=== PATIENT | male | born 1955 | race African-American/Black ===

== ENCOUNTER 2019-12-29 03:17 | Emergency (ER) | payer OTHER ==
[2019-12-29 03:26] VITALS: TEMP 98.5; BMI 26.5
[2019-12-29] MEDS ORDERED: LIDOCAINE HCL 1%, 10 MG/ML (20ML VIAL) ONE (04:43)
[2019-12-29 04:45] LABS: HEMOGLOBIN 11.3 GM/dL (11.7-16.9); MCH 30.1 pg (25.7-33.7); MCHC 33.2 g/dl (32.0-35.9); MEAN CELL VOLUME 90.8 fl (80-96); PLATELET COUNT 192 K/MM3 (134-434); RBC 3.74 M/mm3 (4.00-5.60); RDW 14.4 % (11.9-15.9); WHITE BLOOD COUNT 9.1 K/mm3 (4.0-10.0)
[2019-12-29 05:14] LABS: INR 1.1 (0.83-1.09)
[2019-12-29 06:07] LABS: ALBUMIN 3.3 g/dl (3.4-5.0); ALK PHOS 100 U/L (45-117); ANION GAP 8 MMOL/L (8-16); BILIRUBIN,TOTAL 0.3 mg/dL (0.2-1); BLOOD UREA NITROGEN 28.1 mg/dL (7-18); CHLORIDE 108 mmol/L (98-107); CO2 25 mmol/L (21-32); CREATININE 1.8 mg/dL (0.55-1.3); GLUCOSE,RANDOM 89 mg/dL (74-106); POTASSIUM 4.6 mmol/L (3.5-5.1); SGOT/AST 17 U/L (15-37); SGPT/ALT 21 U/L (13-61); SODIUM 141 mmol/L (136-145)
[2019-12-29 06:22] VITALS: BP 197/107; PULSE 76
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
--- NOTE | 2019-12-29 11:52 | EKG ---
Test Reason : Blood Pressure : / mmHG Vent. Rate : 072 BPM Atrial Rate : 072 BPM P-R Int : 152 ms QRS Dur : 084 ms QT Int : 408 ms P-R-T Axes : 088 048 054 degrees QTc Int : 446 ms NORMAL SINUS RHYTHM VOLTAGE CRITERIA FOR LEFT VENTRICULAR HYPERTROPHY NONSPECIFIC T WAVE ABNORMALITY ABNORMAL ECG NO PREVIOUS ECGS AVAILABLE Confirmed by AMY DOHERTY MD ([id number]) on 12/29/2019 11:51:57 AM Referred By: Confirmed By:AMY DOHERTY MD
== END 2019-12-29 06:22 | disposition short-term general hospital (02) ==
LOC: JER 03:17
PROC: 0JQ10ZZ Repair Face Subcutaneous Tissue and Fascia, Open Approach (ICD-10-PCS; principal; 2019-12-29)
DX: S06.360A Traumatic hemorrhage of cerebrum, unspecified, without loss of consciousness, initial encounter (principal); S01.112A Laceration without foreign body of left eyelid and periocular area, initial encounter; X58.XXXA Exposure to other specified factors, initial encounter; Y93.89 Activity, other specified; Y92.89 Other specified places as the place of occurrence of the external cause; Y99.8 Other external cause status
CPT/HCPCS: 36415; 70450-TC; 70486-TC; 71045-TC-FY; 72125-TC; 80053; 80307; 82550; 83880; 84484; 85027; 85610; 85730; 93005; 93010; 99291

== ENCOUNTER 2020-10-20 11:12 | Inpatient (IN) | payer OTHER ==
[2020-10-20 13:04] LABS: BASO % 0.5 % (0-2.0); EOS % 2.3 % (0-4.5); HEMATOCRIT 40.1 % (35.4-49); HEMOGLOBIN 13.3 GM/dL (11.7-16.9); LYMPH % 30.3 % (8-40); MCH 27.7 pg (25.7-33.7); MCHC 33.3 g/dl (32.0-35.9); MEAN CELL VOLUME 83.2 fl (80-96); MEAN PLT VOLUME 11.1 fl (7.5-11.1); MONO % 19.1 % (3.8-10.2); NEUT % 47.8 % (42.8-82.8); PLATELET COUNT 143 K/MM3 (134-434); RBC 4.82 M/mm3 (4.00-5.60); RDW 14.8 % (11.9-15.9); WHITE BLOOD COUNT 3.4 K/mm3 (4.0-10.0)
[2020-10-20 13:07] LABS: URINE APPEARANCE CLEAR; URINE BILIRUBIN NEGATIVE (NEGATIVE); URINE COLOR YELLOW; URINE GLUCOSE (UA) NEGATIVE (NEGATIVE); URINE KETONE NEGATIVE (NEGATIVE); URINE LEUK ESTERASE NEGATIVE (NEGATIVE); URINE NITRITE NEGATIVE (NEGATIVE); URINE PROTEIN TRACE (NEGATIVE); URINE UROBILINOGEN 0.2 mg/dL (0.2-1.0)
[2020-10-20 13:11] LABS: INR 1.1 (0.83-1.09); PROTHROMBIN TIME (PATIENT) 13.5 SEC (9.7-13.0)
[2020-10-20] MEDS ORDERED: DEXAMETHASONE SOD PHOSPHATE 4 MG/1 ML VIAL IVPUSH ONE (13:11)
[2020-10-20 13:13] LABS: ACTIVATED PTT 31.2 SECONDS (25.2-36.5)
[2020-10-20] MEDS ORDERED: DEXAMETHASONE SOD PHOSPHATE 4 MG/1 ML VIAL ONE (13:14)
[2020-10-20 13:20] LABS: CHLORIDE 107 mmol/L (98-107); POTASSIUM 5.1 mmol/L (3.5-5.1); SODIUM 139 mmol/L (136-145)
[2020-10-20 13:22] LABS: ALBUMIN 3.7 g/dl (3.4-5.0); CALCIUM 9.3 mg/dL (8.5-10.1)
[2020-10-20 13:23] LABS: ANION GAP 6 MMOL/L (8-16); BLOOD UREA NITROGEN 28.7 mg/dL (7-18); CO2 25 mmol/L (21-32); GLUCOSE,RANDOM 91 mg/dL (74-106)
[2020-10-20 13:25] LABS: BILIRUBIN,DIRECT 0.1 mg/dL (0.0-0.2)
[2020-10-20 13:26] LABS: CREATININE 1.2 mg/dL (0.55-1.3); SGOT/AST 16 U/L (15-37); SGPT/ALT 21 U/L (13-61)
[2020-10-20 13:27] LABS: BILIRUBIN,TOTAL 0.3 mg/dL (0.2-1); LDH 144 U/L (87-246); TOT PROT 8.2 g/dl (6.4-8.2)
[2020-10-20 13:28] LABS: ALK PHOS 112 U/L (45-117)
[2020-10-20] MEDS ORDERED: oxyCODONE HCL 5 MG TABLET PO PRN (19:02)
[2020-10-20] MEDS ORDERED: ALBUTEROL SO4 HFA INHALER IH PRN (19:02)
[2020-10-20] MEDS ORDERED: GABAPENTIN 100 MG CAPSULE ONE (21:56)
[2020-10-20] MEDS ORDERED: DOCUSATE SODIUM 100 MG CAPSULE (FP) PO ONE (21:56)
[2020-10-20] MEDS ORDERED: HEPARIN NA (PORCINE) 5,000 UNITS/ML 1ML VIAL SQ SCH (22:00)
[2020-10-20] MEDS: DOCUSATE SODIUM 100 MG CAPSULE (FP) PO SCH (22:07)
[2020-10-20] MEDS: GABAPENTIN 300 MG CAPSULE PO SCH (22:07)
[2020-10-20] MEDS: traZODone HCL 50 MG TABLET (FP) PO SCH (22:33)
[2020-10-20] MEDS: hydrALAZINE HCL 10 MG TABLET PO SCH (22:33)
[2020-10-21 05:21] VITALS: BMI 19.7
[2020-10-21] MEDS: GABAPENTIN 300 MG CAPSULE PO SCH ×3 (06:24→22:30)
[2020-10-21] MEDS: amLODIPine BESYLATE 10 MG TABLET (FP) PO SCH (09:46)
[2020-10-21] MEDS: LOSARTAN POTASSIUM 50 MG TABLET PO SCH (09:46)
[2020-10-21] MEDS: ASPIRIN COATED 81 MG TABLET.EC PO SCH (09:46)
[2020-10-21] MEDS: hydrALAZINE HCL 10 MG TABLET PO SCH ×2 (09:46→22:29)
[2020-10-21] MEDS ORDERED: ACETAMINOPHEN 325 MG TABLET (FP) PO PRN (11:15)
[2020-10-21] MEDS ORDERED: oxyCODONE HCL 5 MG TABLET PO PRN (11:15)
[2020-10-21] MEDS: oxyCODONE HCL 5 MG TABLET PO PRN ×2 (11:26→18:24)
[2020-10-21] MEDS: DULoxetine HCL 30 MG CAPSULE.DR PO SCH (12:49)
[2020-10-21] MEDS: ACETAMINOPHEN 325 MG TABLET (FP) PO PRN (18:25)
[2020-10-21] MEDS: traZODone HCL 50 MG TABLET (FP) PO SCH (22:29)
[2020-10-21] MEDS: DOCUSATE SODIUM 100 MG CAPSULE (FP) PO SCH (22:29)
[2020-10-22] MEDS: GABAPENTIN 300 MG CAPSULE PO SCH ×3 (05:03→22:07)
[2020-10-22] MEDS: oxyCODONE HCL 5 MG TABLET PO PRN ×3 (09:05→22:41)
[2020-10-22] MEDS ORDERED: ENOXAPARIN NA (PORCINE) 80 MG/0.8 ML DISP.SYRIN SQ SCH (10:00)
[2020-10-22] MEDS ORDERED: ENOXAPARIN NA (PORCINE) 40 MG/0.4 ML DISP.SYRIN SQ SCH (10:00)
[2020-10-22 10:31] LABS: BASO % 0.4 % (0-2.0); EOS % 0.9 % (0-4.5); HEMATOCRIT 42.3 % (35.4-49); HEMOGLOBIN 13.9 GM/dL (11.7-16.9); LYMPH % 31.8 % (8-40); MCH 27.2 pg (25.7-33.7); MCHC 32.8 g/dl (32.0-35.9); MEAN PLT VOLUME 11.3 fl (7.5-11.1); NEUT % 52.9 % (42.8-82.8); PLATELET COUNT 134 K/MM3 (134-434); RBC 5.09 M/mm3 (4.00-5.60); WHITE BLOOD COUNT 3.9 K/mm3 (4.0-10.0)
[2020-10-22 10:54] LABS: CHLORIDE 108 mmol/L (98-107); POTASSIUM 4.2 mmol/L (3.5-5.1); SODIUM 138 mmol/L (136-145)
[2020-10-22 10:56] LABS: ALBUMIN 3.5 g/dl (3.4-5.0); ANION GAP 5 MMOL/L (8-16); CO2 25 mmol/L (21-32); GLUCOSE,RANDOM 141 mg/dL (74-106); MAGNESIUM 2.2 mg/dL (1.8-2.4)
[2020-10-22 10:59] LABS: CREATININE 1.3 mg/dL (0.55-1.3); SGOT/AST 14 U/L (15-37); SGPT/ALT 21 U/L (13-61)
[2020-10-22 11:01] LABS: BILIRUBIN,TOTAL 0.4 mg/dL (0.2-1); TOT PROT 7.5 g/dl (6.4-8.2)
[2020-10-22 11:02] LABS: ALK PHOS 105 U/L (45-117)
[2020-10-22 11:06] LABS: LDH 124 U/L (87-246)
[2020-10-22] MEDS ORDERED: PT OWN MED DRAWER 7, Y5N ONE (11:47)
[2020-10-22] MEDS: ASPIRIN COATED 81 MG TABLET.EC PO SCH (11:51)
[2020-10-22] MEDS: LOSARTAN POTASSIUM 50 MG TABLET PO SCH (11:52)
[2020-10-22] MEDS: DULoxetine HCL 30 MG CAPSULE.DR PO SCH (11:52)
[2020-10-22] MEDS: amLODIPine BESYLATE 10 MG TABLET (FP) PO SCH (11:52)
[2020-10-22] MEDS: hydrALAZINE HCL 10 MG TABLET PO SCH ×2 (11:52→22:07)
[2020-10-22] MEDS: MULTIVITAMINS (DAILY MVI) TABLET (FP) PO SCH (11:52)
[2020-10-22] MEDS: ASCORBIC ACID 500 MG TABLET (FP) PO SCH ×2 (11:52→22:07)
[2020-10-22] MEDS: ZINC SULFATE 220 MG CAPSULE (FP) PO SCH ×2 (11:52→22:07)
[2020-10-22] MEDS: CHOLECALCIFEROL (VIT D3) 1,000 UNIT (25 MCG) TABLET PO SCH (11:53)
[2020-10-22] MEDS: AMINO ACIDS/PROTEIN HYDROLYS 30 ML LIQUID.PKT PO SCH (16:35)
[2020-10-22] MEDS: traZODone HCL 50 MG TABLET (FP) PO SCH (22:07)
[2020-10-22] MEDS: DOCUSATE SODIUM 100 MG CAPSULE (FP) PO SCH (22:07)
[2020-10-22] MEDS: ACETAMINOPHEN 325 MG TABLET (FP) PO PRN (22:42)
[2020-10-23] MEDS: GABAPENTIN 300 MG CAPSULE PO SCH ×3 (05:29→22:53)
[2020-10-23] MEDS: oxyCODONE HCL 5 MG TABLET PO PRN ×3 (05:39→20:12)
[2020-10-23] MEDS: ACETAMINOPHEN 325 MG TABLET (FP) PO PRN ×2 (05:40→20:07)
[2020-10-23 09:00] LABS: BASO % 0.4 % (0-2.0); EOS % 0.8 % (0-4.5); HEMATOCRIT 42.2 % (35.4-49); HEMOGLOBIN 13.9 GM/dL (11.7-16.9); LYMPH % 23.8 % (8-40); MCH 26.9 pg (25.7-33.7); MCHC 32.9 g/dl (32.0-35.9); MEAN CELL VOLUME 81.9 fl (80-96); MEAN PLT VOLUME 11.8 fl (7.5-11.1); MONO % 21.9 % (3.8-10.2); NEUT % 53.1 % (42.8-82.8); PLATELET COUNT 127 K/MM3 (134-434); RBC 5.15 M/mm3 (4.00-5.60); RDW 14.8 % (11.9-15.9); WHITE BLOOD COUNT 4.1 K/mm3 (4.0-10.0)
[2020-10-23 09:17] LABS: POTASSIUM 4.4 mmol/L (3.5-5.1)
[2020-10-23 09:34] LABS: ALBUMIN 3.6 g/dl (3.4-5.0); CALCIUM 9.1 mg/dL (8.5-10.1)
[2020-10-23 09:35] LABS: BLOOD UREA NITROGEN 50.2 mg/dL (7-18); MAGNESIUM 2.1 mg/dL (1.8-2.4)
[2020-10-23 09:38] LABS: BILIRUBIN,TOTAL 0.4 mg/dL (0.2-1); CREATININE 1.3 mg/dL (0.55-1.3); TOT PROT 7.8 g/dl (6.4-8.2)
[2020-10-23] MEDS ORDERED: PT OWN MED DRAWER 7, Y5N ONE (10:31)
[2020-10-23] MEDS: amLODIPine BESYLATE 10 MG TABLET (FP) PO SCH (10:42)
[2020-10-23] MEDS: ASPIRIN COATED 81 MG TABLET.EC PO SCH (10:42)
[2020-10-23] MEDS: CHOLECALCIFEROL (VIT D3) 1,000 UNIT (25 MCG) TABLET PO SCH (10:42)
[2020-10-23] MEDS: ZINC SULFATE 220 MG CAPSULE (FP) PO SCH ×2 (10:42→22:53)
[2020-10-23] MEDS: ASCORBIC ACID 500 MG TABLET (FP) PO SCH ×2 (10:42→22:52)
[2020-10-23] MEDS: LOSARTAN POTASSIUM 50 MG TABLET PO SCH (10:42)
[2020-10-23] MEDS: DULoxetine HCL 30 MG CAPSULE.DR PO SCH (10:42)
[2020-10-23] MEDS: AMINO ACIDS/PROTEIN HYDROLYS 30 ML LIQUID.PKT PO SCH ×2 (10:42→16:45)
[2020-10-23] MEDS: hydrALAZINE HCL 10 MG TABLET PO SCH ×2 (10:43→22:53)
[2020-10-23] MEDS: MULTIVITAMINS (DAILY MVI) TABLET (FP) PO SCH (10:45)
[2020-10-23 11:32] LABS: ANISOCYTOSIS 1+; MACROCYTOSIS 0; OVALOCYTE 1+; PLATELET ESTIMATE DECREASED; TEAR DROP CELLS 1+; TOXIC GRANULATION 1+
[2020-10-23] MEDS ORDERED: PANTOPRAZOLE 40 MG TABLET PO ONE (12:41)
[2020-10-23] MEDS: DOCUSATE SODIUM 100 MG CAPSULE (FP) PO SCH (22:52)
[2020-10-23] MEDS: traZODone HCL 50 MG TABLET (FP) PO SCH (22:53)
[2020-10-24] MEDS: GABAPENTIN 300 MG CAPSULE PO SCH ×3 (05:28→21:21)
[2020-10-24 09:21] LABS: BASO % 0.3 % (0-2.0); EOS % 1.2 % (0-4.5); HEMATOCRIT 41.7 % (35.4-49); LYMPH % 30.5 % (8-40); MCH 27.6 pg (25.7-33.7); MCHC 33.5 g/dl (32.0-35.9); MEAN CELL VOLUME 82.5 fl (80-96); MEAN PLT VOLUME 12.5 fl (7.5-11.1); MONO % 21.2 % (3.8-10.2); NEUT % 46.8 % (42.8-82.8); PLATELET COUNT 125 K/MM3 (134-434); RBC 5.06 M/mm3 (4.00-5.60); RDW 14.9 % (11.9-15.9); WHITE BLOOD COUNT 4.8 K/mm3 (4.0-10.0)
[2020-10-24 09:30] LABS: POTASSIUM 4.6 mmol/L (3.5-5.1)
[2020-10-24] MEDS: AMINO ACIDS/PROTEIN HYDROLYS 30 ML LIQUID.PKT PO SCH ×2 (09:50→16:43)
[2020-10-24] MEDS: oxyCODONE HCL 5 MG TABLET PO PRN ×2 (09:55→21:29)
[2020-10-24 09:56] LABS: ALBUMIN 3.6 g/dl (3.4-5.0); BLOOD UREA NITROGEN 46.2 mg/dL (7-18); CALCIUM 9.2 mg/dL (8.5-10.1); MAGNESIUM 2.3 mg/dL (1.8-2.4)
[2020-10-24] MEDS: ACETAMINOPHEN 325 MG TABLET (FP) PO PRN ×2 (09:56→21:30)
[2020-10-24 09:59] LABS: CREATININE 1.2 mg/dL (0.55-1.3)
[2020-10-24 10:00] LABS: BILIRUBIN,TOTAL 0.5 mg/dL (0.2-1); TOT PROT 7.7 g/dl (6.4-8.2)
[2020-10-24 10:05] LABS: ANISOCYTOSIS 0; MACROCYTOSIS 0; PLATELET ESTIMATE DECREASED
[2020-10-24] MEDS: CHOLECALCIFEROL (VIT D3) 1,000 UNIT (25 MCG) TABLET PO SCH (10:50)
[2020-10-24] MEDS: ZINC SULFATE 220 MG CAPSULE (FP) PO SCH ×2 (10:50→21:21)
[2020-10-24] MEDS: DULoxetine HCL 30 MG CAPSULE.DR PO SCH (10:51)
[2020-10-24] MEDS: LOSARTAN POTASSIUM 50 MG TABLET PO SCH (10:51)
[2020-10-24] MEDS: amLODIPine BESYLATE 10 MG TABLET (FP) PO SCH (10:51)
[2020-10-24] MEDS: hydrALAZINE HCL 10 MG TABLET PO SCH ×2 (10:51→21:21)
[2020-10-24] MEDS: ASPIRIN COATED 81 MG TABLET.EC PO SCH (10:51)
[2020-10-24] MEDS: MULTIVITAMINS (DAILY MVI) TABLET (FP) PO SCH (10:52)
[2020-10-24] MEDS: ASCORBIC ACID 500 MG TABLET (FP) PO SCH ×2 (10:52→21:21)
[2020-10-24] MEDS: DOCUSATE SODIUM 100 MG CAPSULE (FP) PO SCH (21:20)
[2020-10-24] MEDS: traZODone HCL 50 MG TABLET (FP) PO SCH (21:21)
[2020-10-25] MEDS: GABAPENTIN 300 MG CAPSULE PO SCH ×3 (05:27→21:36)
[2020-10-25] MEDS: oxyCODONE HCL 5 MG TABLET PO PRN ×3 (05:28→21:54)
[2020-10-25] MEDS: ACETAMINOPHEN 325 MG TABLET (FP) PO PRN ×3 (05:28→21:53)
[2020-10-25] MEDS: AMINO ACIDS/PROTEIN HYDROLYS 30 ML LIQUID.PKT PO SCH ×2 (08:24→17:05)
[2020-10-25 09:02] LABS: BASO % 0.3 % (0-2.0); EOS % 2.8 % (0-4.5); HEMATOCRIT 43.5 % (35.4-49); HEMOGLOBIN 14.3 GM/dL (11.7-16.9); MCHC 32.9 g/dl (32.0-35.9); MEAN CELL VOLUME 82.1 fl (80-96); MEAN PLT VOLUME 11.7 fl (7.5-11.1); MONO % 17.5 % (3.8-10.2); NEUT % 41.4 % (42.8-82.8); PLATELET COUNT 119 K/MM3 (134-434); RDW 15.3 % (11.9-15.9); WHITE BLOOD COUNT 4.5 K/mm3 (4.0-10.0)
[2020-10-25 09:17] LABS: POTASSIUM 4.9 mmol/L (3.5-5.1)
[2020-10-25 09:24] LABS: ALBUMIN 3.5 g/dl (3.4-5.0); BLOOD UREA NITROGEN 55.5 mg/dL (7-18); CALCIUM 9.2 mg/dL (8.5-10.1); MAGNESIUM 2.7 mg/dL (1.8-2.4)
[2020-10-25 09:27] LABS: CREATININE 1.7 mg/dL (0.55-1.3)
[2020-10-25 09:28] LABS: BILIRUBIN,TOTAL 0.4 mg/dL (0.2-1); TOT PROT 7.5 g/dl (6.4-8.2)
[2020-10-25] MEDS: CHOLECALCIFEROL (VIT D3) 1,000 UNIT (25 MCG) TABLET PO SCH (10:24)
[2020-10-25] MEDS: ASCORBIC ACID 500 MG TABLET (FP) PO SCH ×2 (10:24→21:33)
[2020-10-25] MEDS: ASPIRIN COATED 81 MG TABLET.EC PO SCH (10:25)
[2020-10-25] MEDS: DULoxetine HCL 30 MG CAPSULE.DR PO SCH (10:25)
[2020-10-25] MEDS: hydrALAZINE HCL 10 MG TABLET PO SCH ×2 (10:25→21:33)
[2020-10-25] MEDS: amLODIPine BESYLATE 10 MG TABLET (FP) PO SCH (10:25)
[2020-10-25] MEDS: MULTIVITAMINS (DAILY MVI) TABLET (FP) PO SCH (10:25)
[2020-10-25] MEDS: ZINC SULFATE 220 MG CAPSULE (FP) PO SCH ×2 (10:25→21:32)
[2020-10-25] MEDS: LOSARTAN POTASSIUM 50 MG TABLET PO SCH (10:26)
[2020-10-25] MEDS ORDERED: ENOXAPARIN NA (PORCINE) 40 MG/0.4 ML DISP.SYRIN SQ SCH ×2 (16:30)
[2020-10-25] MEDS ORDERED: DEXAMETHASONE SOD PHOSPHATE 10 MG/1 ML VIAL IVPUSH SCH (19:30)
[2020-10-25] MEDS ORDERED: ENOXAPARIN NA (PORCINE) 80 MG/0.8 ML DISP.SYRIN SQ SCH (19:30)
[2020-10-25] MEDS: DEXAMETHASONE SOD PHOSPHATE 4 MG/1 ML VIAL IVPUSH SCH (20:15)
[2020-10-25] MEDS: APIXABAN 2.5 MG TABLET PO SCH (21:33)
[2020-10-25] MEDS: traZODone HCL 50 MG TABLET (FP) PO SCH (21:33)
[2020-10-25] MEDS: DOCUSATE SODIUM 100 MG CAPSULE (FP) PO SCH (21:36)
[2020-10-26 01:25] LABS: POTASSIUM 5.1 mmol/L (3.5-5.1)
[2020-10-26 01:27] LABS: CALCIUM 8.6 mg/dL (8.5-10.1)
[2020-10-26 01:28] LABS: ALBUMIN 3.5 g/dl (3.4-5.0); BLOOD UREA NITROGEN 57.4 mg/dL (7-18); MAGNESIUM 2.6 mg/dL (1.8-2.4)
[2020-10-26 01:31] LABS: CREATININE 1.4 mg/dL (0.55-1.3)
[2020-10-26 01:32] LABS: BILIRUBIN,TOTAL 0.2 mg/dL (0.2-1)
[2020-10-26 01:34] LABS: TOT PROT 7.5 g/dl (6.4-8.2)
[2020-10-26] MEDS: GABAPENTIN 300 MG CAPSULE PO SCH ×3 (06:12→21:38)
[2020-10-26] MEDS: oxyCODONE HCL 5 MG TABLET PO PRN ×3 (06:17→21:36)
[2020-10-26] MEDS: ACETAMINOPHEN 325 MG TABLET (FP) PO PRN ×2 (06:18→21:37)
[2020-10-26] MEDS: AMINO ACIDS/PROTEIN HYDROLYS 30 ML LIQUID.PKT PO SCH ×2 (08:15→17:28)
[2020-10-26] MEDS: DULoxetine HCL 30 MG CAPSULE.DR PO SCH (11:19)
[2020-10-26] MEDS: hydrALAZINE HCL 10 MG TABLET PO SCH ×2 (11:19→21:39)
[2020-10-26] MEDS: APIXABAN 2.5 MG TABLET PO SCH ×2 (11:19→21:36)
[2020-10-26] MEDS: CHOLECALCIFEROL (VIT D3) 1,000 UNIT (25 MCG) TABLET PO SCH (11:19)
[2020-10-26] MEDS: ASCORBIC ACID 500 MG TABLET (FP) PO SCH ×2 (11:19→21:38)
[2020-10-26] MEDS: amLODIPine BESYLATE 10 MG TABLET (FP) PO SCH (11:19)
[2020-10-26] MEDS: ZINC SULFATE 220 MG CAPSULE (FP) PO SCH ×2 (11:22→21:36)
[2020-10-26] MEDS: MULTIVITAMINS (DAILY MVI) TABLET (FP) PO SCH (11:22)
[2020-10-26] MEDS: DEXAMETHASONE SOD PHOSPHATE 4 MG/1 ML VIAL IVPUSH SCH (11:46)
[2020-10-26] MEDS: SODIUM CHLORIDE 1,000 ML IV SCH (16:07)
[2020-10-26] MEDS: traZODone HCL 50 MG TABLET (FP) PO SCH (21:38)
[2020-10-26] MEDS: DOCUSATE SODIUM 100 MG CAPSULE (FP) PO SCH (21:39)
[2020-10-27] MEDS: oxyCODONE HCL 5 MG TABLET PO PRN ×4 (05:07→23:47)
[2020-10-27] MEDS: SODIUM CHLORIDE 1,000 ML IV SCH ×2 (05:08→17:46)
[2020-10-27] MEDS: ACETAMINOPHEN 325 MG TABLET (FP) PO PRN ×2 (05:09→23:46)
[2020-10-27] MEDS: GABAPENTIN 300 MG CAPSULE PO SCH ×3 (05:09→21:24)
[2020-10-27 08:28] LABS: POTASSIUM 4.3 mmol/L (3.5-5.1)
[2020-10-27 08:33] LABS: BLOOD UREA NITROGEN 32.9 mg/dL (7-18); CALCIUM 8.2 mg/dL (8.5-10.1)
[2020-10-27 08:36] LABS: CREATININE 0.9 mg/dL (0.55-1.3)
[2020-10-27 08:51] LABS: BASO % 0.6 % (0-2.0); HEMATOCRIT 37.1 % (35.4-49); HEMOGLOBIN 12.3 GM/dL (11.7-16.9); LYMPH % 45.7 % (8-40); MCH 27.4 pg (25.7-33.7); MCHC 33.1 g/dl (32.0-35.9); MEAN CELL VOLUME 82.8 fl (80-96); MEAN PLT VOLUME 11.9 fl (7.5-11.1); MONO % 11.2 % (3.8-10.2); NEUT % 40.5 % (42.8-82.8); PLATELET COUNT 107 K/MM3 (134-434); RBC 4.49 M/mm3 (4.00-5.60); RDW 15.2 % (11.9-15.9); WHITE BLOOD COUNT 4.4 K/mm3 (4.0-10.0)
[2020-10-27] MEDS: hydrALAZINE HCL 10 MG TABLET PO SCH ×2 (11:42→21:25)
[2020-10-27] MEDS: APIXABAN 2.5 MG TABLET PO SCH ×2 (11:42→21:25)
[2020-10-27] MEDS: ZINC SULFATE 220 MG CAPSULE (FP) PO SCH ×2 (11:42→21:25)
[2020-10-27] MEDS: amLODIPine BESYLATE 10 MG TABLET (FP) PO SCH (11:42)
[2020-10-27] MEDS: AMINO ACIDS/PROTEIN HYDROLYS 30 ML LIQUID.PKT PO SCH ×2 (11:42→17:47)
[2020-10-27] MEDS: CHOLECALCIFEROL (VIT D3) 1,000 UNIT (25 MCG) TABLET PO SCH (11:43)
[2020-10-27] MEDS: ASCORBIC ACID 500 MG TABLET (FP) PO SCH ×2 (11:43→21:25)
[2020-10-27] MEDS: MULTIVITAMINS (DAILY MVI) TABLET (FP) PO SCH (11:43)
[2020-10-27] MEDS: DULoxetine HCL 30 MG CAPSULE.DR PO SCH (11:44)
[2020-10-27 11:46] LABS: PLATELET ESTIMATE DECREASED
[2020-10-27] MEDS ORDERED: PT OWN MED DRAWER 7, Y5N ONE (11:50)
[2020-10-27] MEDS ORDERED: LACTATED RINGERS SOLUTION 1,000 ML/1,000 ML INFUS.BAG IV SCH (15:00)
[2020-10-27] MEDS: DOCUSATE SODIUM 100 MG CAPSULE (FP) PO SCH (21:24)
[2020-10-27] MEDS: traZODone HCL 50 MG TABLET (FP) PO SCH (21:25)
[2020-10-28] MEDS: oxyCODONE HCL 5 MG TABLET PO PRN ×3 (06:01→18:18)
[2020-10-28] MEDS: ACETAMINOPHEN 325 MG TABLET (FP) PO PRN (06:02)
[2020-10-28] MEDS: GABAPENTIN 300 MG CAPSULE PO SCH ×3 (06:03→21:48)
[2020-10-28] MEDS ORDERED: PT OWN MED DRAWER 7, Y5N ONE (11:00)
[2020-10-28] MEDS: DULoxetine HCL 30 MG CAPSULE.DR PO SCH (11:09)
[2020-10-28] MEDS: ZINC SULFATE 220 MG CAPSULE (FP) PO SCH ×2 (11:10→21:48)
[2020-10-28] MEDS: CHOLECALCIFEROL (VIT D3) 1,000 UNIT (25 MCG) TABLET PO SCH (11:10)
[2020-10-28] MEDS: APIXABAN 2.5 MG TABLET PO SCH ×2 (11:10→21:48)
[2020-10-28] MEDS: amLODIPine BESYLATE 10 MG TABLET (FP) PO SCH (11:10)
[2020-10-28] MEDS: hydrALAZINE HCL 10 MG TABLET PO SCH ×2 (11:10→21:48)
[2020-10-28] MEDS: MULTIVITAMINS (DAILY MVI) TABLET (FP) PO SCH (11:10)
[2020-10-28] MEDS: ASCORBIC ACID 500 MG TABLET (FP) PO SCH ×2 (11:10→21:48)
[2020-10-28] MEDS: AMINO ACIDS/PROTEIN HYDROLYS 30 ML LIQUID.PKT PO SCH ×2 (11:12→17:17)
[2020-10-28 16:22] LABS: BASO % 0.2 % (0-2.0); EOS % 3.5 % (0-4.5); HEMATOCRIT 38.8 % (35.4-49); HEMOGLOBIN 12.9 GM/dL (11.7-16.9); LYMPH % 26.2 % (8-40); MCH 27.2 pg (25.7-33.7); MCHC 33.3 g/dl (32.0-35.9); MEAN CELL VOLUME 81.5 fl (80-96); MEAN PLT VOLUME 11.4 fl (7.5-11.1); MONO % 8.8 % (3.8-10.2); NEUT % 61.3 % (42.8-82.8); PLATELET COUNT 122 K/MM3 (134-434); RBC 4.76 M/mm3 (4.00-5.60); RDW 14.7 % (11.9-15.9); WHITE BLOOD COUNT 6.7 K/mm3 (4.0-10.0)
[2020-10-28 16:35] LABS: POTASSIUM 4.4 mmol/L (3.5-5.1)
[2020-10-28 16:39] LABS: CALCIUM 8.9 mg/dL (8.5-10.1)
[2020-10-28 16:41] LABS: ALBUMIN 3.3 g/dl (3.4-5.0); BLOOD UREA NITROGEN 24.2 mg/dL (7-18); MAGNESIUM 1.8 mg/dL (1.8-2.4)
[2020-10-28 16:43] LABS: CREATININE 1.1 mg/dL (0.55-1.3)
[2020-10-28 16:45] LABS: BILIRUBIN,TOTAL 0.3 mg/dL (0.2-1); TOT PROT 6.9 g/dl (6.4-8.2)
[2020-10-28] MEDS: DOCUSATE SODIUM 100 MG CAPSULE (FP) PO SCH (21:48)
[2020-10-28] MEDS: traZODone HCL 50 MG TABLET (FP) PO SCH (21:48)
[2020-10-29] MEDS: GABAPENTIN 300 MG CAPSULE PO SCH ×3 (06:19→21:00)
[2020-10-29] MEDS: oxyCODONE HCL 5 MG TABLET PO PRN ×3 (06:19→19:14)
[2020-10-29] MEDS ORDERED: PT OWN MED DRAWER 7, Y5N ONE (09:05)
[2020-10-29] MEDS: hydrALAZINE HCL 10 MG TABLET PO SCH ×2 (09:13→21:00)
[2020-10-29] MEDS: CHOLECALCIFEROL (VIT D3) 1,000 UNIT (25 MCG) TABLET PO SCH (09:13)
[2020-10-29] MEDS: MULTIVITAMINS (DAILY MVI) TABLET (FP) PO SCH (09:13)
[2020-10-29] MEDS: ASCORBIC ACID 500 MG TABLET (FP) PO SCH ×2 (09:13→21:00)
[2020-10-29] MEDS: DULoxetine HCL 30 MG CAPSULE.DR PO SCH (09:13)
[2020-10-29] MEDS: amLODIPine BESYLATE 10 MG TABLET (FP) PO SCH (09:13)
[2020-10-29] MEDS: APIXABAN 2.5 MG TABLET PO SCH ×2 (09:13→21:00)
[2020-10-29] MEDS: AMINO ACIDS/PROTEIN HYDROLYS 30 ML LIQUID.PKT PO SCH ×2 (09:13→19:17)
[2020-10-29] MEDS: ZINC SULFATE 220 MG CAPSULE (FP) PO SCH ×2 (09:18→21:00)
[2020-10-29 10:32] LABS: BASO % 0.8 % (0-2.0); EOS % 5.1 % (0-4.5); HEMATOCRIT 39.9 % (35.4-49); HEMOGLOBIN 13.2 GM/dL (11.7-16.9); LYMPH % 30.1 % (8-40); MCH 27.2 pg (25.7-33.7); MEAN CELL VOLUME 82.2 fl (80-96); MEAN PLT VOLUME 11.8 fl (7.5-11.1); MONO % 10.9 % (3.8-10.2); NEUT % 53.1 % (42.8-82.8); PLATELET COUNT 129 K/MM3 (134-434); RBC 4.85 M/mm3 (4.00-5.60); RDW 14.2 % (11.9-15.9)
[2020-10-29 10:49] LABS: POTASSIUM 4.3 mmol/L (3.5-5.1)
[2020-10-29 10:52] LABS: CALCIUM 8.9 mg/dL (8.5-10.1); MAGNESIUM 1.8 mg/dL (1.8-2.4)
[2020-10-29 10:53] LABS: ALBUMIN 3.1 g/dl (3.4-5.0)
[2020-10-29 10:58] LABS: BILIRUBIN,TOTAL 0.5 mg/dL (0.2-1); TOT PROT 6.9 g/dl (6.4-8.2)
[2020-10-29] MEDS: DOCUSATE SODIUM 100 MG CAPSULE (FP) PO SCH (21:00)
[2020-10-29] MEDS: traZODone HCL 50 MG TABLET (FP) PO SCH (21:00)
[2020-10-30] MEDS: oxyCODONE HCL 5 MG TABLET PO PRN ×4 (01:48→22:01)
[2020-10-30] MEDS: GABAPENTIN 300 MG CAPSULE PO SCH ×3 (06:23→22:03)
[2020-10-30 08:31] LABS: BASO % 0.2 % (0-2.0); EOS % 4.5 % (0-4.5); HEMATOCRIT 38.8 % (35.4-49); HEMOGLOBIN 12.9 GM/dL (11.7-16.9); LYMPH % 25.4 % (8-40); MCH 27.2 pg (25.7-33.7); MCHC 33.2 g/dl (32.0-35.9); MEAN PLT VOLUME 11.4 fl (7.5-11.1); MONO % 13.2 % (3.8-10.2); NEUT % 56.7 % (42.8-82.8); PLATELET COUNT 129 K/MM3 (134-434); RBC 4.73 M/mm3 (4.00-5.60); RDW 14.5 % (11.9-15.9); WHITE BLOOD COUNT 7.8 K/mm3 (4.0-10.0)
[2020-10-30] MEDS: AMINO ACIDS/PROTEIN HYDROLYS 30 ML LIQUID.PKT PO SCH ×2 (08:48→16:56)
[2020-10-30 08:52] LABS: POTASSIUM 4.7 mmol/L (3.5-5.1)
[2020-10-30 08:55] LABS: ALBUMIN 3.2 g/dl (3.4-5.0); BLOOD UREA NITROGEN 21.2 mg/dL (7-18); CALCIUM 9.3 mg/dL (8.5-10.1); MAGNESIUM 1.9 mg/dL (1.8-2.4)
[2020-10-30 08:58] LABS: CREATININE 1.1 mg/dL (0.55-1.3)
[2020-10-30 09:01] LABS: BILIRUBIN,TOTAL 0.5 mg/dL (0.2-1); TOT PROT 6.9 g/dl (6.4-8.2)
[2020-10-30] MEDS: DULoxetine HCL 30 MG CAPSULE.DR PO SCH (12:06)
[2020-10-30] MEDS: ZINC SULFATE 220 MG CAPSULE (FP) PO SCH ×2 (12:06→22:02)
[2020-10-30] MEDS: APIXABAN 2.5 MG TABLET PO SCH ×2 (12:07→22:02)
[2020-10-30] MEDS: hydrALAZINE HCL 10 MG TABLET PO SCH ×2 (12:07→22:02)
[2020-10-30] MEDS: CHOLECALCIFEROL (VIT D3) 1,000 UNIT (25 MCG) TABLET PO SCH (12:07)
[2020-10-30] MEDS: MULTIVITAMINS (DAILY MVI) TABLET (FP) PO SCH (12:07)
[2020-10-30] MEDS: ASCORBIC ACID 500 MG TABLET (FP) PO SCH ×2 (12:07→22:02)
[2020-10-30] MEDS: amLODIPine BESYLATE 10 MG TABLET (FP) PO SCH (12:07)
[2020-10-30] MEDS: ACETAMINOPHEN 325 MG TABLET (FP) PO PRN (21:59)
[2020-10-30] MEDS: DOCUSATE SODIUM 100 MG CAPSULE (FP) PO SCH (22:00)
[2020-10-30] MEDS: traZODone HCL 50 MG TABLET (FP) PO SCH (22:02)
[2020-10-31] MEDS: oxyCODONE HCL 5 MG TABLET PO PRN ×3 (05:35→22:01)
[2020-10-31] MEDS: ACETAMINOPHEN 325 MG TABLET (FP) PO PRN ×2 (05:37→22:37)
[2020-10-31] MEDS: GABAPENTIN 300 MG CAPSULE PO SCH (05:37)
[2020-10-31 08:59] LABS: BASO % 0.4 % (0-2.0); EOS % 3.4 % (0-4.5); HEMATOCRIT 38.3 % (35.4-49); HEMOGLOBIN 12.9 GM/dL (11.7-16.9); LYMPH % 25.9 % (8-40); MCH 27.6 pg (25.7-33.7); MCHC 33.7 g/dl (32.0-35.9); MEAN CELL VOLUME 81.9 fl (80-96); MEAN PLT VOLUME 11.3 fl (7.5-11.1); MONO % 12.2 % (3.8-10.2); NEUT % 58.1 % (42.8-82.8); PLATELET COUNT 142 K/MM3 (134-434); RBC 4.68 M/mm3 (4.00-5.60); RDW 14.5 % (11.9-15.9); WHITE BLOOD COUNT 7.3 K/mm3 (4.0-10.0)
[2020-10-31 09:16] LABS: POTASSIUM 4.2 mmol/L (3.5-5.1)
[2020-10-31 09:23] LABS: CALCIUM 8.9 mg/dL (8.5-10.1)
[2020-10-31 09:24] LABS: BLOOD UREA NITROGEN 24.1 mg/dL (7-18); MAGNESIUM 1.7 mg/dL (1.8-2.4)
[2020-10-31 09:26] LABS: BILIRUBIN,TOTAL 0.7 mg/dL (0.2-1)
[2020-10-31 09:27] LABS: CREATININE 0.9 mg/dL (0.55-1.3)
[2020-10-31] MEDS ORDERED: PT OWN MED DRAWER 7, Y5N ONE ×4 (10:41→21:45)
[2020-10-31] MEDS: AMINO ACIDS/PROTEIN HYDROLYS 30 ML LIQUID.PKT PO SCH ×2 (10:55→16:34)
[2020-10-31] MEDS: amLODIPine BESYLATE 10 MG TABLET (FP) PO SCH (10:55)
[2020-10-31] MEDS: CHOLECALCIFEROL (VIT D3) 1,000 UNIT (25 MCG) TABLET PO SCH (10:55)
[2020-10-31] MEDS: ASCORBIC ACID 500 MG TABLET (FP) PO SCH ×2 (10:55→22:00)
[2020-10-31] MEDS: ZINC SULFATE 220 MG CAPSULE (FP) PO SCH ×2 (10:55→21:59)
[2020-10-31] MEDS: MULTIVITAMINS (DAILY MVI) TABLET (FP) PO SCH (10:55)
[2020-10-31] MEDS: DULoxetine HCL 30 MG CAPSULE.DR PO SCH (10:55)
[2020-10-31] MEDS: hydrALAZINE HCL 10 MG TABLET PO SCH ×2 (10:55→22:00)
[2020-10-31] MEDS: APIXABAN 2.5 MG TABLET PO SCH ×2 (10:55→21:59)
[2020-10-31] MEDS: LIDOCAINE 5% TOPICAL PATCH TP SCH (11:05)
[2020-10-31] MEDS: GABAPENTIN 400 MG CAPSULE PO SCH ×2 (14:11→21:59)
[2020-10-31] MEDS: traZODone HCL 50 MG TABLET (FP) PO SCH (21:59)
[2020-10-31] MEDS: LIDOCAINE PATCH REMOVAL MC SCH (22:00)
[2020-10-31] MEDS: DOCUSATE SODIUM 100 MG CAPSULE (FP) PO SCH (22:00)
[2020-11-01] MEDS ORDERED: PT OWN MED DRAWER 7, Y5N ONE ×3 (06:04→21:24)
[2020-11-01] MEDS: GABAPENTIN 400 MG CAPSULE PO SCH ×3 (06:34→23:05)
[2020-11-01] MEDS: oxyCODONE HCL 5 MG TABLET PO PRN ×3 (06:35→20:21)
[2020-11-01 09:37] LABS: BASO % 0.5 % (0-2.0); EOS % 2.2 % (0-4.5); HEMATOCRIT 36.8 % (35.4-49); HEMOGLOBIN 12.3 GM/dL (11.7-16.9); LYMPH % 19.7 % (8-40); MCH 27.4 pg (25.7-33.7); MCHC 33.3 g/dl (32.0-35.9); MEAN CELL VOLUME 82.2 fl (80-96); MEAN PLT VOLUME 11.7 fl (7.5-11.1); MONO % 13.5 % (3.8-10.2); NEUT % 64.1 % (42.8-82.8); PLATELET COUNT 149 K/MM3 (134-434); RBC 4.48 M/mm3 (4.00-5.60); RDW 14.4 % (11.9-15.9); WHITE BLOOD COUNT 9.2 K/mm3 (4.0-10.0)
[2020-11-01 09:51] LABS: POTASSIUM 4.1 mmol/L (3.5-5.1)
[2020-11-01 10:01] LABS: CALCIUM 8.9 mg/dL (8.5-10.1)
[2020-11-01 10:03] LABS: MAGNESIUM 1.8 mg/dL (1.8-2.4)
[2020-11-01 10:07] LABS: CREATININE 0.9 mg/dL (0.55-1.3)
[2020-11-01 10:08] LABS: BILIRUBIN,TOTAL 0.8 mg/dL (0.2-1); TOT PROT 6.8 g/dl (6.4-8.2)
[2020-11-01] MEDS: AMINO ACIDS/PROTEIN HYDROLYS 30 ML LIQUID.PKT PO SCH ×2 (10:12→16:49)
[2020-11-01] MEDS: DULoxetine HCL 30 MG CAPSULE.DR PO SCH (10:15)
[2020-11-01] MEDS: amLODIPine BESYLATE 10 MG TABLET (FP) PO SCH (10:16)
[2020-11-01] MEDS: ASCORBIC ACID 500 MG TABLET (FP) PO SCH ×2 (10:16→21:56)
[2020-11-01] MEDS: LIDOCAINE 5% TOPICAL PATCH TP SCH (10:16)
[2020-11-01] MEDS: CHOLECALCIFEROL (VIT D3) 1,000 UNIT (25 MCG) TABLET PO SCH (10:16)
[2020-11-01] MEDS: APIXABAN 2.5 MG TABLET PO SCH ×2 (10:16→21:56)
[2020-11-01] MEDS: MULTIVITAMINS (DAILY MVI) TABLET (FP) PO SCH (10:16)
[2020-11-01] MEDS: hydrALAZINE HCL 10 MG TABLET PO SCH ×2 (10:16→21:56)
[2020-11-01] MEDS: ZINC SULFATE 220 MG CAPSULE (FP) PO SCH ×2 (10:16→21:55)
[2020-11-01] MEDS: ACETAMINOPHEN 325 MG TABLET (FP) PO PRN (20:22)
[2020-11-01] MEDS: DOCUSATE SODIUM 100 MG CAPSULE (FP) PO SCH (21:55)
[2020-11-01] MEDS: traZODone HCL 50 MG TABLET (FP) PO SCH (21:56)
[2020-11-01] MEDS: LIDOCAINE PATCH REMOVAL MC SCH ×2 (21:58→22:00)
[2020-11-02] MEDS ORDERED: PT OWN MED DRAWER 7, Y5N ONE ×3 (05:55→21:06)
[2020-11-02] MEDS: GABAPENTIN 400 MG CAPSULE PO SCH ×3 (06:26→21:17)
[2020-11-02] MEDS: oxyCODONE HCL 5 MG TABLET PO PRN ×3 (06:34→22:02)
[2020-11-02] MEDS: ACETAMINOPHEN 325 MG TABLET (FP) PO PRN ×3 (06:35→22:01)
[2020-11-02] MEDS: LIDOCAINE 5% TOPICAL PATCH TP SCH (10:24)
[2020-11-02] MEDS: MULTIVITAMINS (DAILY MVI) TABLET (FP) PO SCH (10:25)
[2020-11-02] MEDS: ASCORBIC ACID 500 MG TABLET (FP) PO SCH ×2 (10:25→21:18)
[2020-11-02] MEDS: CHOLECALCIFEROL (VIT D3) 1,000 UNIT (25 MCG) TABLET PO SCH (10:25)
[2020-11-02] MEDS: AMINO ACIDS/PROTEIN HYDROLYS 30 ML LIQUID.PKT PO SCH ×2 (10:25→17:04)
[2020-11-02] MEDS: hydrALAZINE HCL 10 MG TABLET PO SCH ×2 (10:26→21:17)
[2020-11-02] MEDS: ZINC SULFATE 220 MG CAPSULE (FP) PO SCH ×2 (10:26→21:18)
[2020-11-02] MEDS: APIXABAN 2.5 MG TABLET PO SCH ×2 (10:26→21:18)
[2020-11-02] MEDS: amLODIPine BESYLATE 10 MG TABLET (FP) PO SCH (10:26)
[2020-11-02] MEDS: DULoxetine HCL 30 MG CAPSULE.DR PO SCH (10:27)
[2020-11-02] MEDS: DOCUSATE SODIUM 100 MG CAPSULE (FP) PO SCH (21:17)
[2020-11-02] MEDS: traZODone HCL 50 MG TABLET (FP) PO SCH (21:17)
[2020-11-02] MEDS: LIDOCAINE PATCH REMOVAL MC SCH (22:09)
[2020-11-03] MEDS ORDERED: PT OWN MED DRAWER 7, Y5N ONE ×3 (05:10→21:25)
[2020-11-03] MEDS: GABAPENTIN 400 MG CAPSULE PO SCH ×3 (05:34→21:31)
[2020-11-03] MEDS: ACETAMINOPHEN 325 MG TABLET (FP) PO PRN ×2 (05:36→20:45)
[2020-11-03] MEDS: oxyCODONE HCL 5 MG TABLET PO PRN ×3 (05:36→20:46)
[2020-11-03] MEDS: AMINO ACIDS/PROTEIN HYDROLYS 30 ML LIQUID.PKT PO SCH ×2 (08:58→16:40)
[2020-11-03] MEDS: MULTIVITAMINS (DAILY MVI) TABLET (FP) PO SCH (09:48)
[2020-11-03] MEDS: APIXABAN 2.5 MG TABLET PO SCH ×2 (09:48→21:31)
[2020-11-03] MEDS: hydrALAZINE HCL 10 MG TABLET PO SCH ×2 (09:48→21:30)
[2020-11-03] MEDS: DULoxetine HCL 30 MG CAPSULE.DR PO SCH (09:48)
[2020-11-03] MEDS: ZINC SULFATE 220 MG CAPSULE (FP) PO SCH ×2 (09:49→21:29)
[2020-11-03] MEDS: LIDOCAINE 5% TOPICAL PATCH TP SCH (09:49)
[2020-11-03] MEDS: ASCORBIC ACID 500 MG TABLET (FP) PO SCH ×2 (09:49→21:29)
[2020-11-03] MEDS: amLODIPine BESYLATE 10 MG TABLET (FP) PO SCH (09:49)
[2020-11-03] MEDS: CHOLECALCIFEROL (VIT D3) 1,000 UNIT (25 MCG) TABLET PO SCH (09:49)
[2020-11-03 12:24] LABS: BASO % 0.3 % (0-2.0); EOS % 2.7 % (0-4.5); HEMATOCRIT 36.2 % (35.4-49); HEMOGLOBIN 11.9 GM/dL (11.7-16.9); LYMPH % 19.1 % (8-40); MCH 27.1 pg (25.7-33.7); MCHC 32.8 g/dl (32.0-35.9); MEAN CELL VOLUME 82.7 fl (80-96); MEAN PLT VOLUME 11.4 fl (7.5-11.1); MONO % 13.8 % (3.8-10.2); NEUT % 64.1 % (42.8-82.8); PLATELET COUNT 186 K/MM3 (134-434); RBC 4.37 M/mm3 (4.00-5.60); RDW 14.3 % (11.9-15.9); WHITE BLOOD COUNT 8.3 K/mm3 (4.0-10.0)
[2020-11-03 12:33] LABS: POTASSIUM 4.3 mmol/L (3.5-5.1)
[2020-11-03 12:36] LABS: CALCIUM 8.8 mg/dL (8.5-10.1)
[2020-11-03 12:37] LABS: ALBUMIN 2.9 g/dl (3.4-5.0); BLOOD UREA NITROGEN 22.4 mg/dL (7-18)
[2020-11-03 12:42] LABS: BILIRUBIN,TOTAL 0.5 mg/dL (0.2-1); TOT PROT 6.8 g/dl (6.4-8.2)
[2020-11-03] MEDS: DOCUSATE SODIUM 100 MG CAPSULE (FP) PO SCH (21:30)
[2020-11-03] MEDS: traZODone HCL 50 MG TABLET (FP) PO SCH (21:31)
[2020-11-03] MEDS: LIDOCAINE PATCH REMOVAL MC SCH (21:32)
[2020-11-04] MEDS ORDERED: PT OWN MED DRAWER 7, Y5N ONE ×3 (04:56→19:50)
[2020-11-04] MEDS: ACETAMINOPHEN 325 MG TABLET (FP) PO PRN ×2 (06:01→20:00)
[2020-11-04] MEDS: oxyCODONE HCL 5 MG TABLET PO PRN ×4 (06:01→20:01)
[2020-11-04] MEDS: GABAPENTIN 400 MG CAPSULE PO SCH ×3 (06:02→21:49)
[2020-11-04] MEDS: AMINO ACIDS/PROTEIN HYDROLYS 30 ML LIQUID.PKT PO SCH ×2 (08:15→16:30)
[2020-11-04 08:35] LABS: BASO % 0.4 % (0-2.0); EOS % 2.3 % (0-4.5); HEMOGLOBIN 11.7 GM/dL (11.7-16.9); LYMPH % 18.1 % (8-40); MCH 27.5 pg (25.7-33.7); MCHC 33.5 g/dl (32.0-35.9); MEAN CELL VOLUME 82.2 fl (80-96); MEAN PLT VOLUME 11.3 fl (7.5-11.1); MONO % 11.9 % (3.8-10.2); NEUT % 67.3 % (42.8-82.8); PLATELET COUNT 192 K/MM3 (134-434); RBC 4.26 M/mm3 (4.00-5.60); RDW 14.2 % (11.9-15.9); WHITE BLOOD COUNT 8.1 K/mm3 (4.0-10.0)
[2020-11-04 08:50] LABS: POTASSIUM 4.2 mmol/L (3.5-5.1)
[2020-11-04 08:53] LABS: BLOOD UREA NITROGEN 21.3 mg/dL (7-18); MAGNESIUM 1.7 mg/dL (1.8-2.4)
[2020-11-04 08:56] LABS: ALBUMIN 2.8 g/dl (3.4-5.0); CREATININE 0.9 mg/dL (0.55-1.3)
[2020-11-04 08:57] LABS: BILIRUBIN,TOTAL 0.7 mg/dL (0.2-1); TOT PROT 6.9 g/dl (6.4-8.2)
[2020-11-04] MEDS: LIDOCAINE 5% TOPICAL PATCH TP SCH (10:08)
[2020-11-04] MEDS: hydrALAZINE HCL 10 MG TABLET PO SCH ×2 (10:09→21:49)
[2020-11-04] MEDS: ASCORBIC ACID 500 MG TABLET (FP) PO SCH ×2 (10:09→21:49)
[2020-11-04] MEDS: CHOLECALCIFEROL (VIT D3) 1,000 UNIT (25 MCG) TABLET PO SCH (10:09)
[2020-11-04] MEDS: amLODIPine BESYLATE 10 MG TABLET (FP) PO SCH (10:09)
[2020-11-04] MEDS: APIXABAN 2.5 MG TABLET PO SCH ×2 (10:09→21:49)
[2020-11-04] MEDS: DULoxetine HCL 30 MG CAPSULE.DR PO SCH (10:09)
[2020-11-04] MEDS: MULTIVITAMINS (DAILY MVI) TABLET (FP) PO SCH (10:09)
[2020-11-04] MEDS: ZINC SULFATE 220 MG CAPSULE (FP) PO SCH ×2 (10:09→21:49)
[2020-11-04] MEDS: LIDOCAINE PATCH REMOVAL MC SCH (21:49)
[2020-11-04] MEDS: DOCUSATE SODIUM 100 MG CAPSULE (FP) PO SCH (21:49)
[2020-11-04] MEDS: traZODone HCL 50 MG TABLET (FP) PO SCH (21:49)
[2020-11-05] MEDS: ACETAMINOPHEN 325 MG TABLET (FP) PO PRN ×2 (00:01→05:00)
[2020-11-05] MEDS ORDERED: PT OWN MED DRAWER 7, Y5N ONE ×2 (04:56→22:21)
[2020-11-05] MEDS: GABAPENTIN 400 MG CAPSULE PO SCH ×3 (05:00→22:26)
[2020-11-05] MEDS: oxyCODONE HCL 5 MG TABLET PO PRN ×6 (05:01→22:27)
[2020-11-05] MEDS ORDERED: ACETAMINOPHEN 325 MG TABLET (FP) PO PRN (08:31)
[2020-11-05] MEDS: AMINO ACIDS/PROTEIN HYDROLYS 30 ML LIQUID.PKT PO SCH ×2 (08:45→16:55)
[2020-11-05 09:14] LABS: BASO % 0.6 % (0-2.0); EOS % 3.6 % (0-4.5); HEMATOCRIT 34.8 % (35.4-49); HEMOGLOBIN 11.5 GM/dL (11.7-16.9); LYMPH % 22.5 % (8-40); MCH 27.4 pg (25.7-33.7); MCHC 33.2 g/dl (32.0-35.9); MEAN CELL VOLUME 82.5 fl (80-96); MEAN PLT VOLUME 10.9 fl (7.5-11.1); MONO % 12.3 % (3.8-10.2); PLATELET COUNT 202 K/MM3 (134-434); RBC 4.21 M/mm3 (4.00-5.60); RDW 14.2 % (11.9-15.9); WHITE BLOOD COUNT 7.4 K/mm3 (4.0-10.0)
[2020-11-05 09:29] LABS: POTASSIUM 4.2 mmol/L (3.5-5.1)
[2020-11-05 09:33] LABS: ALBUMIN 2.8 g/dl (3.4-5.0); BLOOD UREA NITROGEN 18.7 mg/dL (7-18); CALCIUM 9.3 mg/dL (8.5-10.1); MAGNESIUM 2.1 mg/dL (1.8-2.4)
[2020-11-05 09:38] LABS: BILIRUBIN,TOTAL 0.8 mg/dL (0.2-1); TOT PROT 6.8 g/dl (6.4-8.2)
[2020-11-05] MEDS: hydrALAZINE HCL 10 MG TABLET PO SCH ×2 (10:47→22:27)
[2020-11-05] MEDS: APIXABAN 2.5 MG TABLET PO SCH ×2 (10:49→22:27)
[2020-11-05] MEDS: amLODIPine BESYLATE 10 MG TABLET (FP) PO SCH (10:49)
[2020-11-05] MEDS: ZINC SULFATE 220 MG CAPSULE (FP) PO SCH ×2 (10:49→22:27)
[2020-11-05] MEDS: CHOLECALCIFEROL (VIT D3) 1,000 UNIT (25 MCG) TABLET PO SCH (10:49)
[2020-11-05] MEDS: ASCORBIC ACID 500 MG TABLET (FP) PO SCH ×2 (10:49→22:27)
[2020-11-05] MEDS: MULTIVITAMINS (DAILY MVI) TABLET (FP) PO SCH (10:49)
[2020-11-05] MEDS: DULoxetine HCL 30 MG CAPSULE.DR PO SCH (10:50)
[2020-11-05] MEDS: LIDOCAINE 5% TOPICAL PATCH TP SCH (10:54)
[2020-11-05] MEDS: LIDOCAINE PATCH REMOVAL MC SCH (22:00)
[2020-11-05] MEDS: DOCUSATE SODIUM 100 MG CAPSULE (FP) PO SCH (22:26)
[2020-11-05] MEDS: traZODone HCL 50 MG TABLET (FP) PO SCH (22:26)
[2020-11-06] MEDS: GABAPENTIN 400 MG CAPSULE PO SCH ×3 (06:08→22:30)
[2020-11-06] MEDS: oxyCODONE HCL 5 MG TABLET PO PRN ×4 (06:12→21:22)
[2020-11-06 08:26] LABS: BASO % 0.4 % (0-2.0); EOS % 4.8 % (0-4.5); HEMATOCRIT 33.5 % (35.4-49); HEMOGLOBIN 11.2 GM/dL (11.7-16.9); LYMPH % 22.3 % (8-40); MCH 27.5 pg (25.7-33.7); MCHC 33.3 g/dl (32.0-35.9); MEAN CELL VOLUME 82.4 fl (80-96); MEAN PLT VOLUME 10.7 fl (7.5-11.1); MONO % 11.8 % (3.8-10.2); NEUT % 60.7 % (42.8-82.8); PLATELET COUNT 214 K/MM3 (134-434); RBC 4.07 M/mm3 (4.00-5.60)
[2020-11-06 08:32] LABS: POTASSIUM 4.1 mmol/L (3.5-5.1)
[2020-11-06 08:40] LABS: ALBUMIN 2.7 g/dl (3.4-5.0); MAGNESIUM 1.7 mg/dL (1.8-2.4)
[2020-11-06 08:43] LABS: BILIRUBIN,TOTAL 0.5 mg/dL (0.2-1); CREATININE 0.9 mg/dL (0.55-1.3)
[2020-11-06 08:44] LABS: TOT PROT 6.6 g/dl (6.4-8.2)
[2020-11-06] MEDS ORDERED: PT OWN MED DRAWER 7, Y5N ONE ×3 (09:37→21:04)
[2020-11-06] MEDS: amLODIPine BESYLATE 10 MG TABLET (FP) PO SCH (09:44)
[2020-11-06] MEDS: ASCORBIC ACID 500 MG TABLET (FP) PO SCH ×2 (09:44→22:29)
[2020-11-06] MEDS: hydrALAZINE HCL 10 MG TABLET PO SCH ×2 (09:44→22:31)
[2020-11-06] MEDS: AMINO ACIDS/PROTEIN HYDROLYS 30 ML LIQUID.PKT PO SCH ×3 (09:44→16:50)
[2020-11-06] MEDS: LIDOCAINE 5% TOPICAL PATCH TP SCH (09:44)
[2020-11-06] MEDS: APIXABAN 2.5 MG TABLET PO SCH ×2 (09:45→22:29)
[2020-11-06] MEDS: DULoxetine HCL 30 MG CAPSULE.DR PO SCH (09:45)
[2020-11-06] MEDS: MULTIVITAMINS (DAILY MVI) TABLET (FP) PO SCH (09:45)
[2020-11-06] MEDS: CHOLECALCIFEROL (VIT D3) 1,000 UNIT (25 MCG) TABLET PO SCH (09:45)
[2020-11-06] MEDS: ZINC SULFATE 220 MG CAPSULE (FP) PO SCH ×2 (09:45→22:29)
[2020-11-06] MEDS: traZODone HCL 50 MG TABLET (FP) PO SCH (22:29)
[2020-11-06] MEDS: LIDOCAINE PATCH REMOVAL MC SCH (22:30)
[2020-11-06] MEDS: DOCUSATE SODIUM 100 MG CAPSULE (FP) PO SCH (22:30)
[2020-11-07] MEDS: GABAPENTIN 400 MG CAPSULE PO SCH ×3 (05:16→22:34)
[2020-11-07] MEDS: oxyCODONE HCL 5 MG TABLET PO PRN ×4 (05:16→20:39)
[2020-11-07 09:04] LABS: BASO % 0.3 % (0-2.0); EOS % 4.9 % (0-4.5); HEMOGLOBIN 10.8 GM/dL (11.7-16.9); LYMPH % 24.3 % (8-40); MCH 27.5 pg (25.7-33.7); MCHC 33.8 g/dl (32.0-35.9); MEAN CELL VOLUME 81.3 fl (80-96); MEAN PLT VOLUME 10.5 fl (7.5-11.1); MONO % 12.2 % (3.8-10.2); NEUT % 58.3 % (42.8-82.8); PLATELET COUNT 228 K/MM3 (134-434); RBC 3.93 M/mm3 (4.00-5.60); RDW 13.8 % (11.9-15.9); WHITE BLOOD COUNT 6.4 K/mm3 (4.0-10.0)
[2020-11-07 09:16] LABS: POTASSIUM 4.2 mmol/L (3.5-5.1)
[2020-11-07 09:24] LABS: CALCIUM 8.8 mg/dL (8.5-10.1)
[2020-11-07 09:25] LABS: ALBUMIN 2.7 g/dl (3.4-5.0); BLOOD UREA NITROGEN 16.7 mg/dL (7-18); MAGNESIUM 1.7 mg/dL (1.8-2.4)
[2020-11-07 09:28] LABS: CREATININE 0.9 mg/dL (0.55-1.3)
[2020-11-07 09:29] LABS: BILIRUBIN,TOTAL 0.5 mg/dL (0.2-1); TOT PROT 6.8 g/dl (6.4-8.2)
[2020-11-07] MEDS ORDERED: PT OWN MED DRAWER 7, Y5N ONE (10:41)
[2020-11-07] MEDS: AMINO ACIDS/PROTEIN HYDROLYS 30 ML LIQUID.PKT PO SCH ×2 (10:47→17:02)
[2020-11-07] MEDS: ZINC SULFATE 220 MG CAPSULE (FP) PO SCH ×2 (10:49→22:34)
[2020-11-07] MEDS: APIXABAN 2.5 MG TABLET PO SCH ×2 (10:49→22:34)
[2020-11-07] MEDS: ASCORBIC ACID 500 MG TABLET (FP) PO SCH ×2 (10:49→22:34)
[2020-11-07] MEDS: MULTIVITAMINS (DAILY MVI) TABLET (FP) PO SCH (10:49)
[2020-11-07] MEDS: amLODIPine BESYLATE 10 MG TABLET (FP) PO SCH (10:49)
[2020-11-07] MEDS: hydrALAZINE HCL 10 MG TABLET PO SCH ×3 (10:49→22:39)
[2020-11-07] MEDS: LIDOCAINE 5% TOPICAL PATCH TP SCH (10:50)
[2020-11-07] MEDS: CHOLECALCIFEROL (VIT D3) 1,000 UNIT (25 MCG) TABLET PO SCH (10:50)
[2020-11-07] MEDS: DULoxetine HCL 30 MG CAPSULE.DR PO SCH (11:56)
[2020-11-07] MEDS ORDERED: MAGNESIUM OXIDE 400 MG TABLET (FP) PO ONE (12:00)
[2020-11-07] MEDS: DOCUSATE SODIUM 100 MG CAPSULE (FP) PO SCH (22:34)
[2020-11-07] MEDS: LIDOCAINE PATCH REMOVAL MC SCH (22:34)
[2020-11-07] MEDS: traZODone HCL 50 MG TABLET (FP) PO SCH (22:34)
[2020-11-08] MEDS: oxyCODONE HCL 5 MG TABLET PO PRN ×4 (01:19→21:07)
[2020-11-08] MEDS: GABAPENTIN 400 MG CAPSULE PO SCH ×3 (05:50→21:07)
[2020-11-08 09:20] LABS: BASO % 0.4 % (0-2.0); EOS % 5.3 % (0-4.5); HEMATOCRIT 33.7 % (35.4-49); HEMOGLOBIN 11.3 GM/dL (11.7-16.9); LYMPH % 23.6 % (8-40); MCH 27.5 pg (25.7-33.7); MCHC 33.7 g/dl (32.0-35.9); MEAN CELL VOLUME 81.7 fl (80-96); MEAN PLT VOLUME 9.9 fl (7.5-11.1); MONO % 11.8 % (3.8-10.2); NEUT % 58.9 % (42.8-82.8); PLATELET COUNT 247 K/MM3 (134-434); RBC 4.12 M/mm3 (4.00-5.60); RDW 13.8 % (11.9-15.9); WHITE BLOOD COUNT 6.3 K/mm3 (4.0-10.0)
[2020-11-08] MEDS: APIXABAN 2.5 MG TABLET PO SCH ×2 (09:41→21:06)
[2020-11-08] MEDS: ZINC SULFATE 220 MG CAPSULE (FP) PO SCH ×2 (09:41→21:06)
[2020-11-08] MEDS: CHOLECALCIFEROL (VIT D3) 1,000 UNIT (25 MCG) TABLET PO SCH (09:41)
[2020-11-08] MEDS: amLODIPine BESYLATE 10 MG TABLET (FP) PO SCH (09:41)
[2020-11-08] MEDS: hydrALAZINE HCL 10 MG TABLET PO SCH ×2 (09:41→21:06)
[2020-11-08] MEDS: ASCORBIC ACID 500 MG TABLET (FP) PO SCH ×2 (09:41→21:06)
[2020-11-08] MEDS: MULTIVITAMINS (DAILY MVI) TABLET (FP) PO SCH (09:41)
[2020-11-08] MEDS: AMINO ACIDS/PROTEIN HYDROLYS 30 ML LIQUID.PKT PO SCH ×2 (09:42→18:20)
[2020-11-08] MEDS: LIDOCAINE 5% TOPICAL PATCH TP SCH (09:43)
[2020-11-08] MEDS: DULoxetine HCL 30 MG CAPSULE.DR PO SCH (09:43)
[2020-11-08 09:45] LABS: POTASSIUM 4.3 mmol/L (3.5-5.1)
[2020-11-08 10:02] LABS: ALBUMIN 2.8 g/dl (3.4-5.0); BLOOD UREA NITROGEN 18.8 mg/dL (7-18); CALCIUM 9.1 mg/dL (8.5-10.1)
[2020-11-08 10:03] LABS: MAGNESIUM 1.8 mg/dL (1.8-2.4)
[2020-11-08 10:05] LABS: CREATININE 0.9 mg/dL (0.55-1.3)
[2020-11-08 10:06] LABS: BILIRUBIN,TOTAL 0.5 mg/dL (0.2-1)
[2020-11-08] MEDS ORDERED: PT OWN MED DRAWER 7, Y5N ONE (20:40)
[2020-11-08] MEDS: traZODone HCL 50 MG TABLET (FP) PO SCH (21:07)
[2020-11-08] MEDS: DOCUSATE SODIUM 100 MG CAPSULE (FP) PO SCH (21:07)
[2020-11-08] MEDS: LIDOCAINE PATCH REMOVAL MC SCH (23:56)
[2020-11-09] MEDS: GABAPENTIN 400 MG CAPSULE PO SCH ×3 (05:33→21:25)
[2020-11-09] MEDS: oxyCODONE HCL 5 MG TABLET PO PRN ×4 (05:33→21:27)
[2020-11-09] MEDS ORDERED: PT OWN MED DRAWER 7, Y5N ONE ×2 (10:00→21:14)
[2020-11-09 10:04] LABS: BASO % 0.5 % (0-2.0); EOS % 5.6 % (0-4.5); HEMATOCRIT 33.3 % (35.4-49); HEMOGLOBIN 11.4 GM/dL (11.7-16.9); LYMPH % 23.4 % (8-40); MCH 27.6 pg (25.7-33.7); MCHC 34.2 g/dl (32.0-35.9); MEAN CELL VOLUME 80.7 fl (80-96); MONO % 10.4 % (3.8-10.2); NEUT % 60.1 % (42.8-82.8); PLATELET COUNT 269 K/MM3 (134-434); RBC 4.12 M/mm3 (4.00-5.60); WHITE BLOOD COUNT 6.5 K/mm3 (4.0-10.0)
[2020-11-09] MEDS: LIDOCAINE 5% TOPICAL PATCH TP SCH (10:12)
[2020-11-09] MEDS: DULoxetine HCL 30 MG CAPSULE.DR PO SCH (10:13)
[2020-11-09] MEDS: MULTIVITAMINS (DAILY MVI) TABLET (FP) PO SCH (10:13)
[2020-11-09] MEDS: amLODIPine BESYLATE 10 MG TABLET (FP) PO SCH (10:13)
[2020-11-09] MEDS: APIXABAN 2.5 MG TABLET PO SCH ×2 (10:13→21:25)
[2020-11-09] MEDS: hydrALAZINE HCL 10 MG TABLET PO SCH ×2 (10:13→21:26)
[2020-11-09] MEDS: ZINC SULFATE 220 MG CAPSULE (FP) PO SCH ×2 (10:13→21:27)
[2020-11-09] MEDS: ASCORBIC ACID 500 MG TABLET (FP) PO SCH ×2 (10:14→21:26)
[2020-11-09] MEDS: CHOLECALCIFEROL (VIT D3) 1,000 UNIT (25 MCG) TABLET PO SCH (10:14)
[2020-11-09] MEDS: AMINO ACIDS/PROTEIN HYDROLYS 30 ML LIQUID.PKT PO SCH ×2 (10:14→16:45)
[2020-11-09 10:23] LABS: POTASSIUM 4.3 mmol/L (3.5-5.1)
[2020-11-09 10:39] LABS: ALBUMIN 2.9 g/dl (3.4-5.0); CALCIUM 9.3 mg/dL (8.5-10.1)
[2020-11-09 10:40] LABS: BLOOD UREA NITROGEN 18.6 mg/dL (7-18); MAGNESIUM 1.9 mg/dL (1.8-2.4)
[2020-11-09 10:42] LABS: CREATININE 0.9 mg/dL (0.55-1.3)
[2020-11-09 10:44] LABS: BILIRUBIN,TOTAL 0.4 mg/dL (0.2-1); TOT PROT 7.1 g/dl (6.4-8.2)
[2020-11-09] MEDS: ACETAMINOPHEN 325 MG TABLET (FP) PO PRN ×2 (15:19→21:28)
[2020-11-09] MEDS: traZODone HCL 50 MG TABLET (FP) PO SCH (21:25)
[2020-11-09] MEDS: DOCUSATE SODIUM 100 MG CAPSULE (FP) PO SCH (21:26)
[2020-11-09] MEDS: LIDOCAINE PATCH REMOVAL MC SCH (21:27)
[2020-11-10] MEDS: GABAPENTIN 400 MG CAPSULE PO SCH ×3 (06:07→21:03)
[2020-11-10] MEDS: oxyCODONE HCL 5 MG TABLET PO PRN ×3 (06:17→18:02)
[2020-11-10] MEDS: ACETAMINOPHEN 325 MG TABLET (FP) PO PRN (06:18)
[2020-11-10] MEDS: AMINO ACIDS/PROTEIN HYDROLYS 30 ML LIQUID.PKT PO SCH ×2 (09:03→17:26)
[2020-11-10 09:25] LABS: BASO % 0.5 % (0-2.0); EOS % 5.8 % (0-4.5); HEMATOCRIT 33.4 % (35.4-49); HEMOGLOBIN 11.2 GM/dL (11.7-16.9); LYMPH % 21.7 % (8-40); MCH 27.3 pg (25.7-33.7); MCHC 33.4 g/dl (32.0-35.9); MEAN CELL VOLUME 81.8 fl (80-96); MEAN PLT VOLUME 9.9 fl (7.5-11.1); MONO % 10.6 % (3.8-10.2); NEUT % 61.4 % (42.8-82.8); PLATELET COUNT 247 K/MM3 (134-434); RBC 4.08 M/mm3 (4.00-5.60); RDW 13.8 % (11.9-15.9); WHITE BLOOD COUNT 6.1 K/mm3 (4.0-10.0)
[2020-11-10 09:40] LABS: POTASSIUM 4.4 mmol/L (3.5-5.1)
[2020-11-10 09:52] LABS: ALBUMIN 2.7 g/dl (3.4-5.0); BLOOD UREA NITROGEN 22.5 mg/dL (7-18)
[2020-11-10 09:54] LABS: BILIRUBIN,TOTAL 0.8 mg/dL (0.2-1); TOT PROT 6.8 g/dl (6.4-8.2)
[2020-11-10] MEDS ORDERED: PT OWN MED DRAWER 7, Y5N ONE ×3 (09:59→21:01)
[2020-11-10] MEDS: LIDOCAINE 5% TOPICAL PATCH TP SCH (10:26)
[2020-11-10] MEDS: amLODIPine BESYLATE 10 MG TABLET (FP) PO SCH (10:27)
[2020-11-10] MEDS: APIXABAN 2.5 MG TABLET PO SCH ×2 (10:27→21:03)
[2020-11-10] MEDS: ZINC SULFATE 220 MG CAPSULE (FP) PO SCH ×2 (10:27→21:03)
[2020-11-10] MEDS: DULoxetine HCL 30 MG CAPSULE.DR PO SCH (10:27)
[2020-11-10] MEDS: hydrALAZINE HCL 10 MG TABLET PO SCH ×2 (10:27→21:03)
[2020-11-10] MEDS: MULTIVITAMINS (DAILY MVI) TABLET (FP) PO SCH (10:27)
[2020-11-10] MEDS: ASCORBIC ACID 500 MG TABLET (FP) PO SCH ×2 (10:27→21:03)
[2020-11-10] MEDS: CHOLECALCIFEROL (VIT D3) 1,000 UNIT (25 MCG) TABLET PO SCH (10:27)
[2020-11-10] MEDS: DOCUSATE SODIUM 100 MG CAPSULE (FP) PO SCH (21:03)
[2020-11-10] MEDS: traZODone HCL 50 MG TABLET (FP) PO SCH (21:03)
[2020-11-10] MEDS: LIDOCAINE PATCH REMOVAL MC SCH (21:04)
[2020-11-11] MEDS: oxyCODONE HCL 5 MG TABLET PO PRN ×6 (01:13→23:33)
[2020-11-11] MEDS ORDERED: PT OWN MED DRAWER 7, Y5N ONE ×4 (05:33→21:20)
[2020-11-11] MEDS: GABAPENTIN 400 MG CAPSULE PO SCH ×3 (05:42→21:41)
[2020-11-11] MEDS: AMINO ACIDS/PROTEIN HYDROLYS 30 ML LIQUID.PKT PO SCH ×2 (07:20→16:34)
[2020-11-11 09:06] LABS: BASO % 0.6 % (0-2.0); EOS % 6.9 % (0-4.5); HEMATOCRIT 34.1 % (35.4-49); HEMOGLOBIN 11.5 GM/dL (11.7-16.9); LYMPH % 29.3 % (8-40); MCH 27.4 pg (25.7-33.7); MCHC 33.7 g/dl (32.0-35.9); MEAN CELL VOLUME 81.3 fl (80-96); MEAN PLT VOLUME 9.6 fl (7.5-11.1); MONO % 10.3 % (3.8-10.2); NEUT % 52.9 % (42.8-82.8); PLATELET COUNT 258 K/MM3 (134-434); RBC 4.19 M/mm3 (4.00-5.60); RDW 13.8 % (11.9-15.9)
[2020-11-11 09:28] LABS: POTASSIUM 4.4 mmol/L (3.5-5.1)
[2020-11-11 09:40] LABS: CALCIUM 9.6 mg/dL (8.5-10.1)
[2020-11-11 09:45] LABS: BILIRUBIN,TOTAL 0.7 mg/dL (0.2-1); TOT PROT 7.1 g/dl (6.4-8.2)
[2020-11-11 09:46] LABS: BLOOD UREA NITROGEN 19.7 mg/dL (7-18)
[2020-11-11 09:47] LABS: ALBUMIN 2.9 g/dl (3.4-5.0)
[2020-11-11 09:49] LABS: MAGNESIUM 1.8 mg/dL (1.8-2.4)
[2020-11-11] MEDS: LIDOCAINE 5% TOPICAL PATCH TP SCH (10:11)
[2020-11-11] MEDS: hydrALAZINE HCL 10 MG TABLET PO SCH ×2 (10:12→21:41)
[2020-11-11] MEDS: APIXABAN 2.5 MG TABLET PO SCH ×2 (10:12→21:41)
[2020-11-11] MEDS: ZINC SULFATE 220 MG CAPSULE (FP) PO SCH ×2 (10:12→21:41)
[2020-11-11] MEDS: ASCORBIC ACID 500 MG TABLET (FP) PO SCH ×2 (10:12→21:41)
[2020-11-11] MEDS: amLODIPine BESYLATE 10 MG TABLET (FP) PO SCH (10:12)
[2020-11-11] MEDS: CHOLECALCIFEROL (VIT D3) 1,000 UNIT (25 MCG) TABLET PO SCH (10:12)
[2020-11-11] MEDS: DULoxetine HCL 30 MG CAPSULE.DR PO SCH (10:12)
[2020-11-11] MEDS: MULTIVITAMINS (DAILY MVI) TABLET (FP) PO SCH (10:12)
[2020-11-11] MEDS: LIDOCAINE PATCH REMOVAL MC SCH (21:41)
[2020-11-11] MEDS: traZODone HCL 50 MG TABLET (FP) PO SCH (21:41)
[2020-11-11] MEDS: DOCUSATE SODIUM 100 MG CAPSULE (FP) PO SCH (21:41)
[2020-11-11] MEDS: ACETAMINOPHEN 325 MG TABLET (FP) PO PRN (23:33)
[2020-11-12] MEDS ORDERED: PT OWN MED DRAWER 7, Y5N ONE (05:40)
[2020-11-12] MEDS: oxyCODONE HCL 5 MG TABLET PO PRN ×4 (05:57→21:51)
[2020-11-12] MEDS: GABAPENTIN 400 MG CAPSULE PO SCH ×3 (05:58→21:51)
[2020-11-12] MEDS: ACETAMINOPHEN 325 MG TABLET (FP) PO PRN ×3 (05:58→15:15)
[2020-11-12 10:04] LABS: BASO % 0.6 % (0-2.0); EOS % 8.6 % (0-4.5); HEMATOCRIT 34.1 % (35.4-49); HEMOGLOBIN 11.2 GM/dL (11.7-16.9); LYMPH % 31.7 % (8-40); MCHC 32.7 g/dl (32.0-35.9); MEAN CELL VOLUME 82.3 fl (80-96); MEAN PLT VOLUME 9.9 fl (7.5-11.1); MONO % 12.8 % (3.8-10.2); NEUT % 46.3 % (42.8-82.8); PLATELET COUNT 254 K/MM3 (134-434); RBC 4.15 M/mm3 (4.00-5.60)
[2020-11-12 10:20] LABS: POTASSIUM 4.4 mmol/L (3.5-5.1)
[2020-11-12] MEDS: AMINO ACIDS/PROTEIN HYDROLYS 30 ML LIQUID.PKT PO SCH ×2 (10:31→17:26)
[2020-11-12 10:33] LABS: ALBUMIN 2.8 g/dl (3.4-5.0); BLOOD UREA NITROGEN 24.9 mg/dL (7-18); MAGNESIUM 1.8 mg/dL (1.8-2.4)
[2020-11-12] MEDS: MULTIVITAMINS (DAILY MVI) TABLET (FP) PO SCH (10:48)
[2020-11-12] MEDS: APIXABAN 2.5 MG TABLET PO SCH ×2 (10:48→21:50)
[2020-11-12] MEDS: ZINC SULFATE 220 MG CAPSULE (FP) PO SCH ×2 (10:48→21:49)
[2020-11-12] MEDS: hydrALAZINE HCL 10 MG TABLET PO SCH ×2 (10:48→21:49)
[2020-11-12] MEDS: ASCORBIC ACID 500 MG TABLET (FP) PO SCH ×2 (10:48→21:49)
[2020-11-12] MEDS: CHOLECALCIFEROL (VIT D3) 1,000 UNIT (25 MCG) TABLET PO SCH (10:48)
[2020-11-12] MEDS: DULoxetine HCL 30 MG CAPSULE.DR PO SCH (10:49)
[2020-11-12] MEDS: amLODIPine BESYLATE 10 MG TABLET (FP) PO SCH (10:50)
[2020-11-12] MEDS: LIDOCAINE 5% TOPICAL PATCH TP SCH (10:50)
[2020-11-12 10:51] LABS: BILIRUBIN,TOTAL 0.3 mg/dL (0.2-1)
[2020-11-12] MEDS: DOCUSATE SODIUM 100 MG CAPSULE (FP) PO SCH (21:49)
[2020-11-12] MEDS: traZODone HCL 50 MG TABLET (FP) PO SCH (21:50)
[2020-11-12] MEDS: LIDOCAINE PATCH REMOVAL MC SCH (22:00)
[2020-11-13] MEDS: oxyCODONE HCL 5 MG TABLET PO PRN ×4 (03:50→20:04)
[2020-11-13] MEDS: GABAPENTIN 400 MG CAPSULE PO SCH ×3 (05:53→21:21)
[2020-11-13] MEDS: AMINO ACIDS/PROTEIN HYDROLYS 30 ML LIQUID.PKT PO SCH ×2 (08:10→17:34)
[2020-11-13 10:05] LABS: BASO % 0.7 % (0-2.0); EOS % 7.7 % (0-4.5); HEMATOCRIT 34.1 % (35.4-49); HEMOGLOBIN 11.3 GM/dL (11.7-16.9); LYMPH % 32.4 % (8-40); MCH 27.1 pg (25.7-33.7); MCHC 33.2 g/dl (32.0-35.9); MEAN CELL VOLUME 81.5 fl (80-96); MEAN PLT VOLUME 9.8 fl (7.5-11.1); MONO % 10.5 % (3.8-10.2); NEUT % 48.7 % (42.8-82.8); PLATELET COUNT 259 K/MM3 (134-434); RBC 4.18 M/mm3 (4.00-5.60); WHITE BLOOD COUNT 5.3 K/mm3 (4.0-10.0)
[2020-11-13] MEDS: hydrALAZINE HCL 10 MG TABLET PO SCH ×2 (10:06→21:18)
[2020-11-13] MEDS: MULTIVITAMINS (DAILY MVI) TABLET (FP) PO SCH (10:06)
[2020-11-13] MEDS: APIXABAN 2.5 MG TABLET PO SCH ×2 (10:06→21:18)
[2020-11-13] MEDS: LIDOCAINE 5% TOPICAL PATCH TP SCH (10:06)
[2020-11-13] MEDS: CHOLECALCIFEROL (VIT D3) 1,000 UNIT (25 MCG) TABLET PO SCH (10:06)
[2020-11-13] MEDS: ASCORBIC ACID 500 MG TABLET (FP) PO SCH ×2 (10:06→21:18)
[2020-11-13] MEDS: ACETAMINOPHEN 325 MG TABLET (FP) PO PRN ×2 (10:07→15:15)
[2020-11-13] MEDS: ZINC SULFATE 220 MG CAPSULE (FP) PO SCH ×2 (10:07→21:17)
[2020-11-13] MEDS: amLODIPine BESYLATE 10 MG TABLET (FP) PO SCH (10:07)
[2020-11-13] MEDS: DULoxetine HCL 30 MG CAPSULE.DR PO SCH (10:12)
[2020-11-13 10:16] LABS: POTASSIUM 4.2 mmol/L (3.5-5.1)
[2020-11-13 10:18] LABS: ALBUMIN 2.8 g/dl (3.4-5.0); BLOOD UREA NITROGEN 20.7 mg/dL (7-18); CALCIUM 9.3 mg/dL (8.5-10.1)
[2020-11-13 10:19] LABS: MAGNESIUM 1.7 mg/dL (1.8-2.4)
[2020-11-13 10:21] LABS: CREATININE 0.9 mg/dL (0.55-1.3)
[2020-11-13 10:24] LABS: BILIRUBIN,TOTAL 0.3 mg/dL (0.2-1); TOT PROT 6.8 g/dl (6.4-8.2)
[2020-11-13] MEDS ORDERED: MAGNESIUM OXIDE 400 MG TABLET (FP) PO ONE (14:13)
[2020-11-13] MEDS: traZODone HCL 50 MG TABLET (FP) PO SCH (21:18)
[2020-11-13] MEDS: DOCUSATE SODIUM 100 MG CAPSULE (FP) PO SCH (21:18)
[2020-11-13] MEDS: LIDOCAINE PATCH REMOVAL MC SCH (21:18)
[2020-11-14] MEDS: oxyCODONE HCL 5 MG TABLET PO PRN ×5 (01:00→20:01)
[2020-11-14] MEDS: GABAPENTIN 400 MG CAPSULE PO SCH ×3 (05:05→21:07)
[2020-11-14] MEDS ORDERED: PT OWN MED DRAWER 7, Y5N ONE ×2 (09:56→20:39)
[2020-11-14] MEDS: AMINO ACIDS/PROTEIN HYDROLYS 30 ML LIQUID.PKT PO SCH ×2 (10:01→18:48)
[2020-11-14] MEDS: hydrALAZINE HCL 10 MG TABLET PO SCH ×2 (10:01→21:08)
[2020-11-14] MEDS: APIXABAN 2.5 MG TABLET PO SCH ×2 (10:02→21:08)
[2020-11-14] MEDS: DULoxetine HCL 30 MG CAPSULE.DR PO SCH (10:02)
[2020-11-14] MEDS: amLODIPine BESYLATE 10 MG TABLET (FP) PO SCH (10:03)
[2020-11-14] MEDS: LIDOCAINE 5% TOPICAL PATCH TP SCH (10:03)
[2020-11-14] MEDS: ASCORBIC ACID 500 MG TABLET (FP) PO SCH ×2 (10:04→21:08)
[2020-11-14] MEDS: CHOLECALCIFEROL (VIT D3) 1,000 UNIT (25 MCG) TABLET PO SCH (10:04)
[2020-11-14] MEDS: MULTIVITAMINS (DAILY MVI) TABLET (FP) PO SCH (10:04)
[2020-11-14] MEDS: ZINC SULFATE 220 MG CAPSULE (FP) PO SCH ×2 (10:04→21:06)
[2020-11-14] MEDS ORDERED: INSULIN (NOVOLOG) ASPART 100 UNITS/ML 10ML VIAL ONE (20:38)
[2020-11-14] MEDS: traZODone HCL 50 MG TABLET (FP) PO SCH (21:06)
[2020-11-14] MEDS: DOCUSATE SODIUM 100 MG CAPSULE (FP) PO SCH (21:08)
[2020-11-14] MEDS: LIDOCAINE PATCH REMOVAL MC SCH (21:09)
[2020-11-15] MEDS: oxyCODONE HCL 5 MG TABLET PO PRN ×5 (00:08→21:10)
[2020-11-15] MEDS ORDERED: PT OWN MED DRAWER 7, Y5N ONE ×2 (05:55→13:10)
[2020-11-15] MEDS: GABAPENTIN 400 MG CAPSULE PO SCH ×3 (05:58→21:12)
[2020-11-15] MEDS: LIDOCAINE 5% TOPICAL PATCH TP SCH (09:57)
[2020-11-15] MEDS: AMINO ACIDS/PROTEIN HYDROLYS 30 ML LIQUID.PKT PO SCH ×3 (09:58→16:03)
[2020-11-15] MEDS: hydrALAZINE HCL 10 MG TABLET PO SCH ×2 (09:58→21:09)
[2020-11-15] MEDS: ASCORBIC ACID 500 MG TABLET (FP) PO SCH ×2 (09:59→21:10)
[2020-11-15] MEDS: CHOLECALCIFEROL (VIT D3) 1,000 UNIT (25 MCG) TABLET PO SCH (09:59)
[2020-11-15] MEDS: MULTIVITAMINS (DAILY MVI) TABLET (FP) PO SCH (09:59)
[2020-11-15] MEDS: ZINC SULFATE 220 MG CAPSULE (FP) PO SCH ×2 (09:59→21:10)
[2020-11-15] MEDS: APIXABAN 2.5 MG TABLET PO SCH ×2 (09:59→21:10)
[2020-11-15] MEDS: DULoxetine HCL 30 MG CAPSULE.DR PO SCH (10:00)
[2020-11-15] MEDS: amLODIPine BESYLATE 10 MG TABLET (FP) PO SCH (10:00)
[2020-11-15] MEDS: traZODone HCL 50 MG TABLET (FP) PO SCH (21:09)
[2020-11-15] MEDS: DOCUSATE SODIUM 100 MG CAPSULE (FP) PO SCH (21:09)
[2020-11-15] MEDS: LIDOCAINE PATCH REMOVAL MC SCH (21:12)
[2020-11-16] MEDS: oxyCODONE HCL 5 MG TABLET PO PRN ×4 (03:23→21:23)
[2020-11-16] MEDS ORDERED: PT OWN MED DRAWER 7, Y5N ONE ×3 (06:32→14:48)
[2020-11-16] MEDS: GABAPENTIN 400 MG CAPSULE PO SCH ×3 (06:34→21:22)
[2020-11-16] MEDS: AMINO ACIDS/PROTEIN HYDROLYS 30 ML LIQUID.PKT PO SCH ×2 (07:09→17:18)
[2020-11-16] MEDS: LIDOCAINE 5% TOPICAL PATCH TP SCH (09:24)
[2020-11-16] MEDS: DULoxetine HCL 30 MG CAPSULE.DR PO SCH (09:24)
[2020-11-16] MEDS: MULTIVITAMINS (DAILY MVI) TABLET (FP) PO SCH (09:25)
[2020-11-16] MEDS: ASCORBIC ACID 500 MG TABLET (FP) PO SCH ×2 (09:25→21:21)
[2020-11-16] MEDS: APIXABAN 2.5 MG TABLET PO SCH ×2 (09:25→21:21)
[2020-11-16] MEDS: ZINC SULFATE 220 MG CAPSULE (FP) PO SCH ×2 (09:25→21:22)
[2020-11-16] MEDS: amLODIPine BESYLATE 10 MG TABLET (FP) PO SCH (09:25)
[2020-11-16] MEDS: CHOLECALCIFEROL (VIT D3) 1,000 UNIT (25 MCG) TABLET PO SCH (09:25)
[2020-11-16] MEDS: hydrALAZINE HCL 10 MG TABLET PO SCH ×2 (09:25→21:21)
[2020-11-16] MEDS: traZODone HCL 50 MG TABLET (FP) PO SCH (21:21)
[2020-11-16] MEDS: LIDOCAINE PATCH REMOVAL MC SCH (21:22)
[2020-11-16] MEDS: DOCUSATE SODIUM 100 MG CAPSULE (FP) PO SCH (21:22)
[2020-11-17] MEDS ORDERED: PT OWN MED DRAWER 7, Y5N ONE ×2 (01:33→09:10)
[2020-11-17] MEDS: oxyCODONE HCL 5 MG TABLET PO PRN ×3 (02:44→14:15)
[2020-11-17] MEDS: GABAPENTIN 400 MG CAPSULE PO SCH ×2 (06:00→14:14)
[2020-11-17] MEDS: AMINO ACIDS/PROTEIN HYDROLYS 30 ML LIQUID.PKT PO SCH (07:33)
[2020-11-17] MEDS: ZINC SULFATE 220 MG CAPSULE (FP) PO SCH (09:23)
[2020-11-17] MEDS: MULTIVITAMINS (DAILY MVI) TABLET (FP) PO SCH (09:23)
[2020-11-17] MEDS: LIDOCAINE 5% TOPICAL PATCH TP SCH (09:23)
[2020-11-17] MEDS: hydrALAZINE HCL 10 MG TABLET PO SCH (09:23)
[2020-11-17] MEDS: ASCORBIC ACID 500 MG TABLET (FP) PO SCH (09:23)
[2020-11-17] MEDS: CHOLECALCIFEROL (VIT D3) 1,000 UNIT (25 MCG) TABLET PO SCH (09:23)
[2020-11-17] MEDS: APIXABAN 2.5 MG TABLET PO SCH (09:24)
[2020-11-17] MEDS: amLODIPine BESYLATE 10 MG TABLET (FP) PO SCH (09:24)
[2020-11-17] MEDS: DULoxetine HCL 30 MG CAPSULE.DR PO SCH (09:27)
[2020-11-17 12:57] VITALS: TEMP 98.2
[2020-11-17 15:11] VITALS: BP 134/75; PULSE 95
== END 2020-11-17 15:20 | DRG 137 ==
LOC: JER 11:12 → JERBED 15:11 → INTOOBSV 15:11 → J5S 10-21 03:30 → OBSVTOIN 11-13 13:57
PROVIDERS: ADMIT Internal Medicine; ATTEND Nurse Practitioner Acute Care
DX: U07.1 COVID-19 (principal); J44.9 Chronic obstructive pulmonary disease, unspecified; R51.9 Headache, unspecified; F14.90 Cocaine use, unspecified, uncomplicated; Z68.1 Body mass index [BMI] 19.9 or less, adult; E46 Unspecified protein-calorie malnutrition; N17.9 Acute kidney failure, unspecified; J96.01 Acute respiratory failure with hypoxia; I12.9 Hypertensive chronic kidney disease with stage 1 through stage 4 chronic kidney disease, or unspecified chronic kidney disease; N18.9 Chronic kidney disease, unspecified; R53.81 Other malaise; E86.0 Dehydration; G54.6 Phantom limb syndrome with pain; E83.42 Hypomagnesemia; Z89.611 Acquired absence of right leg above knee; Z86.73 Personal history of transient ischemic attack (TIA), and cerebral infarction without residual deficits
CPT/HCPCS: 36415; 71045-TC-FY; 76775-TC; 80048; 80053; 81003; 82248; 82550; 82728; 82962; 83605; 83615; 83735; 84484; 85025; 85379; 85610; 85730; 86140; 87040; 87086; 87804; 93005; 93010; 97116-GP; 97161-GP; 99285-25; C9803; G0378; U0003

== ENCOUNTER 2021-02-13 18:38 | Inpatient (IN) | payer OTHER ==
[2021-02-13 21:00] LABS: BASO % 0.3 % (0-2.0); EOS % 4.7 % (0-4.5); HEMATOCRIT 38.9 % (35.4-49); HEMOGLOBIN 12.9 GM/dL (11.7-16.9); LYMPH % 33.9 % (8-40); MCH 25.9 pg (25.7-33.7); MCHC 33.2 g/dl (32.0-35.9); MEAN CELL VOLUME 78.2 fl (80-96); MONO % 12.8 % (3.8-10.2); NEUT % 48.3 % (42.8-82.8); PLATELET COUNT 142 K/MM3 (134-434); RBC 4.97 M/mm3 (4.00-5.60); RDW 15.8 % (11.9-15.9); VENOUS BASE EXCESS -2.6 mmol/L (-2-2); VENOUS PCO2 40.1 mmHg (38-52); VENOUS PH 7.366 (7.310-7.410); WHITE BLOOD COUNT 5.3 K/mm3 (4.0-10.0)
[2021-02-13 21:17] LABS: CHLORIDE 107 mmol/L (98-107); SODIUM 137 mmol/L (136-145)
[2021-02-13 21:19] LABS: CALCIUM 11.5 mg/dL (8.5-10.1)
[2021-02-13 21:20] LABS: ALBUMIN 3.6 g/dl (3.4-5.0); ANION GAP 8 MMOL/L (8-16); BLOOD UREA NITROGEN 51.3 mg/dL (7-18); CO2 22 mmol/L (21-32); GLUCOSE,RANDOM 114 mg/dL (74-106)
[2021-02-13 21:23] LABS: CREATININE 1.1 mg/dL (0.55-1.3); SGOT/AST 43 U/L (15-37); SGPT/ALT 67 U/L (13-61)
[2021-02-13 21:25] LABS: BILIRUBIN,TOTAL 0.4 mg/dL (0.2-1); TOT PROT 7.7 g/dl (6.4-8.2)
[2021-02-13 21:26] LABS: ALK PHOS 153 U/L (45-117)
[2021-02-13 21:31] LABS: EPI CELLS 18 /uL (0-25.1); HYALINE CASTS 2 /uL (0-3.1); URINE APPEARANCE CLEAR; URINE BACTERIA 738 /uL (0-1359); URINE BILIRUBIN NEGATIVE (NEGATIVE); URINE COLOR YELLOW; URINE GLUCOSE (UA) NEGATIVE (NEGATIVE); URINE KETONE NEGATIVE (NEGATIVE); URINE LEUK ESTERASE 1+ (NEGATIVE); URINE NITRITE NEGATIVE (NEGATIVE); URINE PROTEIN NEGATIVE (NEGATIVE); URINE RBC 8 /uL (0-23.9); URINE WBC 26 /uL (0-25.8)
[2021-02-13] MEDS ORDERED: CEFTRIAXONE 1 GM in DEXTROSE 5%-WATER - 100 ML IVPB ONE (21:40)
[2021-02-13] MEDS ORDERED: CEFTRIAXONE 1 GM/50 ML BAG ONE (21:52)
[2021-02-14] MEDS ORDERED: oxyCODONE HCL 5 MG TABLET PO ONE (01:48)
[2021-02-14] MEDS ORDERED: oxyCODONE HCL 5 MG TABLET ONE (01:50)
[2021-02-14] MEDS ORDERED: ACETAMINOPHEN 325 MG TABLET (FP) PO PRN (02:50)
[2021-02-14] MEDS ORDERED: ALBUTEROL SO4 HFA INHALER IH SCH (03:00)
[2021-02-14] MEDS ORDERED: ALBUTEROL SO4 HFA INHALER IH PRN (05:25)
[2021-02-14] MEDS: oxyCODONE HCL 5 MG TABLET PO PRN ×2 (06:14→16:17)
[2021-02-14] MEDS: GABAPENTIN 300 MG CAPSULE PO SCH ×3 (06:14→21:30)
[2021-02-14] MEDS ORDERED: cefTRIAXone SODIUM 1 GM VIAL ONE (08:40)
[2021-02-14] MEDS ORDERED: DEXTROSE 5%-WATER - 50 ML IVPB ONE (08:41)
[2021-02-14] MEDS: CEFTRIAXONE 1 GM in DEXTROSE 5%-WATER - 50 ML IVPB SCH (09:02)
[2021-02-14] MEDS: AMINO ACIDS/PROTEIN HYDROLYS 30 ML LIQUID.PKT PO SCH ×2 (09:03→16:45)
[2021-02-14] MEDS: ASCORBIC ACID 500 MG TABLET (FP) PO SCH ×2 (09:03→21:30)
[2021-02-14] MEDS: MULTIVITAMINS (DAILY MVI) TABLET (FP) PO SCH (09:03)
[2021-02-14] MEDS: CHOLECALCIFEROL (VIT D3) 1,000 UNIT (25 MCG) TABLET PO SCH (09:03)
[2021-02-14] MEDS: VITAMIN B COMPLEX W/C COMBO TABLET (FP) PO SCH (09:03)
[2021-02-14] MEDS: APIXABAN 2.5 MG TABLET PO SCH ×2 (09:03→21:30)
[2021-02-14] MEDS: ASPIRIN COATED 81 MG TABLET.EC PO SCH (09:04)
[2021-02-14] MEDS: LOSARTAN POTASSIUM 50 MG TABLET PO SCH (09:04)
[2021-02-14] MEDS: amLODIPine BESYLATE 10 MG TABLET (FP) PO SCH (09:04)
[2021-02-14] MEDS: LIDOCAINE 5% TOPICAL PATCH TP SCH (09:07)
[2021-02-14] MEDS: hydrALAZINE HCL 10 MG TABLET PO SCH ×2 (10:21→21:30)
[2021-02-14] MEDS: DOCUSATE SODIUM 100 MG CAPSULE (FP) PO SCH (21:30)
[2021-02-14] MEDS: LIDOCAINE PATCH REMOVAL MC SCH (21:31)
[2021-02-14] MEDS: THIAMINE HCL 200 MG/2 ML VIAL IVPB SCH (21:31)
[2021-02-15] MEDS: GABAPENTIN 300 MG CAPSULE PO SCH ×3 (05:42→21:47)
[2021-02-15] MEDS: THIAMINE HCL 200 MG/2 ML VIAL IVPB SCH ×3 (05:45→21:46)
[2021-02-15] MEDS: oxyCODONE HCL 5 MG TABLET PO PRN ×4 (05:56→23:26)
[2021-02-15 07:24] LABS: BASO % 0.4 % (0-2.0); EOS % 3.6 % (0-4.5); HEMATOCRIT 38.5 % (35.4-49); HEMOGLOBIN 13.1 GM/dL (11.7-16.9); LYMPH % 36.5 % (8-40); MCH 26.4 pg (25.7-33.7); MCHC 34.1 g/dl (32.0-35.9); MEAN CELL VOLUME 77.5 fl (80-96); MEAN PLT VOLUME 11.5 fl (7.5-11.1); MONO % 11.4 % (3.8-10.2); NEUT % 48.1 % (42.8-82.8); PLATELET COUNT 132 K/MM3 (134-434); RBC 4.97 M/mm3 (4.00-5.60); RDW 15.7 % (11.9-15.9); WHITE BLOOD COUNT 6.2 K/mm3 (4.0-10.0)
[2021-02-15 07:54] LABS: ALBUMIN 3.6 g/dl (3.4-5.0); CALCIUM 12.1 mg/dL (8.5-10.1)
[2021-02-15 07:56] LABS: CREATININE 0.9 mg/dL (0.55-1.3)
[2021-02-15 07:57] LABS: BILIRUBIN,TOTAL 0.7 mg/dL (0.2-1); TOT PROT 7.6 g/dl (6.4-8.2)
[2021-02-15] MEDS ORDERED: cefTRIAXone SODIUM 1 GM VIAL ONE (09:23)
[2021-02-15] MEDS ORDERED: DEXTROSE 5%-WATER - 50 ML IVPB ONE (09:23)
[2021-02-15] MEDS: ASPIRIN COATED 81 MG TABLET.EC PO SCH (09:32)
[2021-02-15] MEDS: VITAMIN B COMPLEX W/C COMBO TABLET (FP) PO SCH (09:32)
[2021-02-15] MEDS: AMINO ACIDS/PROTEIN HYDROLYS 30 ML LIQUID.PKT PO SCH ×2 (09:32→19:03)
[2021-02-15] MEDS: amLODIPine BESYLATE 10 MG TABLET (FP) PO SCH (09:33)
[2021-02-15] MEDS: ASCORBIC ACID 500 MG TABLET (FP) PO SCH ×2 (09:33→21:48)
[2021-02-15] MEDS: MULTIVITAMINS (DAILY MVI) TABLET (FP) PO SCH (09:33)
[2021-02-15] MEDS: APIXABAN 2.5 MG TABLET PO SCH ×2 (09:33→21:47)
[2021-02-15] MEDS: CHOLECALCIFEROL (VIT D3) 1,000 UNIT (25 MCG) TABLET PO SCH (09:33)
[2021-02-15] MEDS: LOSARTAN POTASSIUM 50 MG TABLET PO SCH (09:34)
[2021-02-15] MEDS ORDERED: PT OWN MED DRAWER 7, Y5N ONE ×2 (09:35→14:53)
[2021-02-15] MEDS: hydrALAZINE HCL 10 MG TABLET PO SCH ×2 (09:35→21:47)
[2021-02-15] MEDS: LIDOCAINE 5% TOPICAL PATCH TP SCH (09:35)
[2021-02-15] MEDS: CEFTRIAXONE 1 GM in DEXTROSE 5%-WATER - 50 ML IVPB SCH (09:36)
[2021-02-15] MEDS: CEFUROXIME AXETIL 500 MG TABLET PO SCH ×2 (11:56→21:47)
[2021-02-15 14:03] VITALS: BMI 18.5
[2021-02-15] MEDS: METHIMAZOLE 5 MG TABLET (FP) PO SCH ×2 (14:56→21:47)
[2021-02-15] MEDS: DOCUSATE SODIUM 100 MG CAPSULE (FP) PO SCH (21:47)
[2021-02-15] MEDS: LIDOCAINE PATCH REMOVAL MC SCH (21:50)
[2021-02-16] MEDS: oxyCODONE HCL 5 MG TABLET PO PRN ×3 (03:45→20:06)
[2021-02-16] MEDS: GABAPENTIN 300 MG CAPSULE PO SCH ×3 (06:13→21:33)
[2021-02-16] MEDS: THIAMINE HCL 200 MG/2 ML VIAL IVPB SCH ×3 (06:13→21:27)
[2021-02-16] MEDS: METHIMAZOLE 5 MG TABLET (FP) PO SCH ×3 (06:14→21:30)
[2021-02-16] MEDS ORDERED: PT OWN MED DRAWER 7, Y5N ONE (09:07)
[2021-02-16] MEDS: hydrALAZINE HCL 10 MG TABLET PO SCH ×2 (09:11→21:29)
[2021-02-16] MEDS: AMINO ACIDS/PROTEIN HYDROLYS 30 ML LIQUID.PKT PO SCH ×2 (09:11→17:36)
[2021-02-16] MEDS: LIDOCAINE 5% TOPICAL PATCH TP SCH (09:11)
[2021-02-16] MEDS: CHOLECALCIFEROL (VIT D3) 1,000 UNIT (25 MCG) TABLET PO SCH (09:12)
[2021-02-16] MEDS: APIXABAN 2.5 MG TABLET PO SCH ×2 (09:12→21:29)
[2021-02-16] MEDS: LOSARTAN POTASSIUM 50 MG TABLET PO SCH (09:12)
[2021-02-16] MEDS: VITAMIN B COMPLEX W/C COMBO TABLET (FP) PO SCH (09:12)
[2021-02-16] MEDS: ASCORBIC ACID 500 MG TABLET (FP) PO SCH ×2 (09:12→21:29)
[2021-02-16] MEDS: amLODIPine BESYLATE 10 MG TABLET (FP) PO SCH (09:12)
[2021-02-16] MEDS: ASPIRIN COATED 81 MG TABLET.EC PO SCH (09:12)
[2021-02-16] MEDS: MULTIVITAMINS (DAILY MVI) TABLET (FP) PO SCH (09:12)
[2021-02-16] MEDS: CEFUROXIME AXETIL 500 MG TABLET PO SCH ×2 (09:12→21:29)
[2021-02-16] MEDS: DOCUSATE SODIUM 100 MG CAPSULE (FP) PO SCH (21:29)
[2021-02-16] MEDS: LIDOCAINE PATCH REMOVAL MC SCH (21:30)
[2021-02-16] MEDS ORDERED: MELATONIN 5 MG TABLETS PO ONE (23:44)
[2021-02-17] MEDS: oxyCODONE HCL 5 MG TABLET PO PRN ×4 (00:33→21:05)
[2021-02-17] MEDS: METHIMAZOLE 5 MG TABLET (FP) PO SCH ×3 (05:17→21:07)
[2021-02-17] MEDS: GABAPENTIN 300 MG CAPSULE PO SCH ×3 (05:17→21:06)
[2021-02-17] MEDS: THIAMINE HCL 200 MG/2 ML VIAL IVPB SCH ×2 (06:00→14:35)
[2021-02-17] MEDS: LIDOCAINE 5% TOPICAL PATCH TP SCH (09:09)
[2021-02-17] MEDS: hydrALAZINE HCL 10 MG TABLET PO SCH ×2 (09:10→21:07)
[2021-02-17] MEDS: CEFUROXIME AXETIL 500 MG TABLET PO SCH ×2 (09:10→21:06)
[2021-02-17] MEDS: VITAMIN B COMPLEX W/C COMBO TABLET (FP) PO SCH (09:10)
[2021-02-17] MEDS: CHOLECALCIFEROL (VIT D3) 1,000 UNIT (25 MCG) TABLET PO SCH (09:10)
[2021-02-17] MEDS: AMINO ACIDS/PROTEIN HYDROLYS 30 ML LIQUID.PKT PO SCH ×2 (09:10→18:07)
[2021-02-17] MEDS: ASCORBIC ACID 500 MG TABLET (FP) PO SCH ×2 (09:10→21:06)
[2021-02-17] MEDS: LOSARTAN POTASSIUM 50 MG TABLET PO SCH (09:10)
[2021-02-17] MEDS: MULTIVITAMINS (DAILY MVI) TABLET (FP) PO SCH (09:11)
[2021-02-17] MEDS: APIXABAN 2.5 MG TABLET PO SCH ×2 (09:11→21:06)
[2021-02-17] MEDS: ASPIRIN COATED 81 MG TABLET.EC PO SCH (09:11)
[2021-02-17] MEDS: amLODIPine BESYLATE 10 MG TABLET (FP) PO SCH (09:11)
[2021-02-17] MEDS: DOCUSATE SODIUM 100 MG CAPSULE (FP) PO SCH (21:07)
[2021-02-17] MEDS: LIDOCAINE PATCH REMOVAL MC SCH (21:07)
[2021-02-18] MEDS: oxyCODONE HCL 5 MG TABLET PO PRN ×4 (03:43→19:57)
[2021-02-18] MEDS: METHIMAZOLE 5 MG TABLET (FP) PO SCH ×2 (06:54→13:18)
[2021-02-18] MEDS: GABAPENTIN 300 MG CAPSULE PO SCH ×2 (06:54→13:17)
[2021-02-18] MEDS: AMINO ACIDS/PROTEIN HYDROLYS 30 ML LIQUID.PKT PO SCH ×2 (07:44→18:21)
[2021-02-18] MEDS: LIDOCAINE 5% TOPICAL PATCH TP SCH (09:15)
[2021-02-18] MEDS: CEFUROXIME AXETIL 500 MG TABLET PO SCH (09:16)
[2021-02-18] MEDS: MULTIVITAMINS (DAILY MVI) TABLET (FP) PO SCH (09:16)
[2021-02-18] MEDS: amLODIPine BESYLATE 10 MG TABLET (FP) PO SCH (09:16)
[2021-02-18] MEDS: APIXABAN 2.5 MG TABLET PO SCH (09:17)
[2021-02-18] MEDS: CHOLECALCIFEROL (VIT D3) 1,000 UNIT (25 MCG) TABLET PO SCH (09:17)
[2021-02-18] MEDS: VITAMIN B COMPLEX W/C COMBO TABLET (FP) PO SCH (09:17)
[2021-02-18] MEDS: ASCORBIC ACID 500 MG TABLET (FP) PO SCH (09:17)
[2021-02-18] MEDS: hydrALAZINE HCL 10 MG TABLET PO SCH (09:18)
[2021-02-18] MEDS: LOSARTAN POTASSIUM 50 MG TABLET PO SCH (09:19)
[2021-02-18] MEDS: ASPIRIN COATED 81 MG TABLET.EC PO SCH (09:20)
[2021-02-18] MEDS ORDERED: PT OWN MED DRAWER 7, Y5N ONE (20:50)
[2021-02-18 20:54] VITALS: BP 114/74; PULSE 99; TEMP 98
== END 2021-02-18 21:24 | DRG 463 ==
LOC: JER 18:38 → JERBED 02-14 00:57 → J7W 02-14 05:36
PROVIDERS: ADMIT Internal Medicine; ATTEND Family Medicine
DX: N39.0 Urinary tract infection, site not specified (principal); E05.90 Thyrotoxicosis, unspecified without thyrotoxic crisis or storm; I10 Essential (primary) hypertension; F32.9 Major depressive disorder, single episode, unspecified; J44.9 Chronic obstructive pulmonary disease, unspecified; G92 Toxic encephalopathy; D69.6 Thrombocytopenia, unspecified; G54.6 Phantom limb syndrome with pain
CPT/HCPCS: 36415; 70450-TC; 71045-TC-FY; 72125-TC; 80053; 81003; 82140; 82550; 82607; 82803; 84425; 84443; 84484; 85025; 86780; 87040; 87086; 93005; 93010; 99285-25; C9803; U0003; U0005

== ENCOUNTER 2021-03-26 13:20 | Emergency (ER) | payer OTHER ==
[2021-03-26 13:47] VITALS: BMI 21.9
[2021-03-26] MEDS ORDERED: KETOROLAC TROMETHAMINE 15 MG/ML VIAL IVPUSH ONE (14:06)
[2021-03-26] MEDS ORDERED: KETOROLAC TROMETHAMINE 15 MG/ML VIAL ONE (14:38)
[2021-03-26 15:31] LABS: BASO % 0.4 % (0-2.0); EOS % 4.3 % (0-4.5); HEMATOCRIT 39.6 % (35.4-49); HEMOGLOBIN 13.3 GM/dL (11.7-16.9); LYMPH % 35.1 % (8-40); MCH 26.4 pg (25.7-33.7); MCHC 33.6 g/dl (32.0-35.9); MEAN CELL VOLUME 78.4 fl (80-96); MONO % 7.7 % (3.8-10.2); NEUT % 52.5 % (42.8-82.8); PLATELET COUNT 188 K/MM3 (134-434); RBC 5.05 M/mm3 (4.00-5.60)
[2021-03-26 15:54] LABS: CHLORIDE 104 mmol/L (98-107); SODIUM 143 mmol/L (136-145)
[2021-03-26 15:56] LABS: ALBUMIN 3.6 g/dl (3.4-5.0); ANION GAP 8 MMOL/L (8-16); CALCIUM 9.6 mg/dL (8.5-10.1); CO2 31 mmol/L (21-32); GLUCOSE,RANDOM 98 mg/dL (74-106)
[2021-03-26 15:57] LABS: BLOOD UREA NITROGEN 11.6 mg/dL (7-18)
[2021-03-26 15:59] LABS: CREATININE 0.7 mg/dL (0.55-1.3); SGPT/ALT 50 U/L (13-61)
[2021-03-26 16:00] LABS: SGOT/AST 30 U/L (15-37)
[2021-03-26 16:01] LABS: BILIRUBIN,TOTAL 0.5 mg/dL (0.2-1); TOT PROT 7.5 g/dl (6.4-8.2)
[2021-03-26 16:02] LABS: ALK PHOS 187 U/L (45-117)
[2021-03-26 18:37] VITALS: BP 142/83; PULSE 71; TEMP 98.8
[2021-03-26] MEDS ORDERED: oxyCODONE HCL 5 MG TABLET PO ONE (23:15)
[2021-03-26] MEDS ORDERED: oxyCODONE HCL 5 MG TABLET ONE (23:17)
== END 2021-03-26 23:26 | disposition home or self-care (01) ==
LOC: JER 13:20
PROC: 3E0333Z Introduction of Anti-inflammatory into Peripheral Vein, Percutaneous Approach (ICD-10-PCS; principal; 2021-03-26)
DX: R07.9 Chest pain, unspecified (principal)
CPT/HCPCS: 36415; 71046-TC-FY; 80053; 82550; 84484; 85025; 93005; 93010; 99285-25

== ENCOUNTER 2021-06-12 17:04 | Inpatient (IN) | payer OTHER ==
[2021-06-12] MEDS ORDERED: LACTATED RINGERS SOLUTION 1000 ML INFUS.BAG IV ONE (18:28)
[2021-06-12 19:24] LABS: BASO % 0.4 % (0-2.0); EOS % 2.7 % (0-4.5); HEMATOCRIT 40.2 % (35.4-49); HEMOGLOBIN 13.7 GM/dL (11.7-16.9); LYMPH % 18.3 % (8-40); MCH 29.5 pg (25.7-33.7); MCHC 34.2 g/dl (32.0-35.9); MEAN CELL VOLUME 86.4 fl (80-96); MEAN PLT VOLUME 11.3 fl (7.5-11.1); NEUT % 69.6 % (42.8-82.8); PLATELET COUNT 149 10^3/uL (134-434); RBC 4.66 M/mm3 (4.00-5.60); RDW 14.9 % (11.9-15.9); WHITE BLOOD COUNT 8.8 K/mm3 (4.0-10.0)
[2021-06-12 19:30] LABS: INR 1.24 (0.83-1.09); PROTHROMBIN TIME (PATIENT) 15.2 SEC (9.7-13.0)
[2021-06-12 19:42] LABS: CHLORIDE 109 mmol/L (98-107); SODIUM 143 mmol/L (136-145)
[2021-06-12 19:47] LABS: ALBUMIN 3.6 g/dl (3.4-5.0); ANION GAP 11 MMOL/L (8-16); BLOOD UREA NITROGEN 23.4 mg/dL (7-18); CALCIUM 9.3 mg/dL (8.5-10.1); CO2 24 mmol/L (21-32); MAGNESIUM 2.2 mg/dL (1.8-2.4)
[2021-06-12 19:48] LABS: GLUCOSE,RANDOM 93 mg/dL (74-106)
[2021-06-12 19:50] LABS: SGPT/ALT 32 U/L (13-61)
[2021-06-12 19:51] LABS: CREATININE 1.1 mg/dL (0.55-1.3); SGOT/AST 15 U/L (15-37)
[2021-06-12 19:52] LABS: BILIRUBIN,TOTAL 0.5 mg/dL (0.2-1); TOT PROT 8.2 g/dl (6.4-8.2)
[2021-06-12 19:53] LABS: ALK PHOS 130 U/L (45-117)
[2021-06-12] MEDS ORDERED: LIDOCAINE PATCH REMOVAL MC SCH (22:00)
[2021-06-12] MEDS ORDERED: ALBUTEROL SO4 HFA INHALER IH PRN (22:15)
[2021-06-12] MEDS ORDERED: ACETAMINOPHEN 325 MG TABLET (FP) PO PRN (22:15)
[2021-06-12] MEDS ORDERED: oxyCODONE HCL 5 MG TABLET ONE (23:57)
[2021-06-13] MEDS: oxyCODONE HCL 5 MG TABLET PO PRN ×2 (00:14→14:27)
[2021-06-13 04:12] LABS: EPI CELLS >36 /uL (0-25.1); HYALINE CASTS 7 /uL (0-3.1); URINE APPEARANCE CLOUDY; URINE BACTERIA 10 /uL (0-1359); URINE BILIRUBIN NEGATIVE (NEGATIVE); URINE COLOR YELLOW; URINE GLUCOSE (UA) NEGATIVE (NEGATIVE); URINE KETONE NEGATIVE (NEGATIVE); URINE LEUK ESTERASE 2+ (NEGATIVE); URINE NITRITE NEGATIVE (NEGATIVE); URINE PROTEIN NEGATIVE (NEGATIVE); URINE RBC 15 /uL (0-23.9); URINE WBC 475 /uL (0-25.8)
[2021-06-13 05:24] VITALS: BMI 18.5
[2021-06-13] MEDS: GABAPENTIN 300 MG CAPSULE PO SCH ×2 (06:02→14:27)
[2021-06-13] MEDS: METHIMAZOLE 5 MG TABLET PO SCH ×2 (06:02→14:26)
[2021-06-13 06:24] LABS: BASO % 0.5 % (0-2.0); EOS % 4.1 % (0-4.5); HEMATOCRIT 37.3 % (35.4-49); HEMOGLOBIN 12.7 GM/dL (11.7-16.9); LYMPH % 25.5 % (8-40); MCH 29.8 pg (25.7-33.7); MCHC 34.1 g/dl (32.0-35.9); MEAN CELL VOLUME 87.5 fl (80-96); MEAN PLT VOLUME 11.5 fl (7.5-11.1); MONO % 10.6 % (3.8-10.2); NEUT % 59.3 % (42.8-82.8); PLATELET COUNT 121 10^3/uL (134-434); RBC 4.27 M/mm3 (4.00-5.60); RDW 14.5 % (11.9-15.9); WHITE BLOOD COUNT 7.9 K/mm3 (4.0-10.0)
[2021-06-13 06:42] LABS: CALCIUM 8.8 mg/dL (8.5-10.1)
[2021-06-13 06:43] LABS: BLOOD UREA NITROGEN 19.6 mg/dL (7-18)
[2021-06-13] MEDS ORDERED: POTASSIUM CHLORIDE TABS 10 MEQ TABLET.ER (FP) PO ONE (07:50)
[2021-06-13] MEDS ORDERED: hydrALAZINE HCL 50 MG TABLET (FP) PO SCH (10:00)
[2021-06-13] MEDS ORDERED: DULoxetine HCL 30 MG CAPSULE.DR PO SCH (10:00)
[2021-06-13] MEDS ORDERED: amLODIPine BESYLATE 10 MG TABLET (FP) PO SCH (10:00)
[2021-06-13] MEDS ORDERED: APIXABAN 2.5 MG TABLET PO SCH (10:00)
[2021-06-13] MEDS ORDERED: CHOLECALCIFEROL (VIT D3) 1,000 UNIT (25 MCG) TABLET PO SCH (10:00)
[2021-06-13] MEDS ORDERED: LOSARTAN POTASSIUM 50 MG TABLET PO SCH (10:00)
[2021-06-13] MEDS ORDERED: PATIENT'S OWN MEDICATION (NON-FORMULARY) (Losartan Potassium [Cozaar] 100 MG Tablet) PO SCH (10:00)
[2021-06-13] MEDS ORDERED: MULTIVITAMINS (DAILY MVI) TABLET (FP) PO SCH (10:00)
[2021-06-13] MEDS ORDERED: LIDOCAINE 5% TOPICAL PATCH TP SCH (10:00)
[2021-06-13] MEDS ORDERED: ZINC SULFATE 220 MG CAPSULE (FP) PO SCH (10:00)
[2021-06-13] MEDS: AMINO ACIDS/PROTEIN HYDROLYS 30 ML LIQUID.PKT PO SCH ×2 (10:29→17:23)
[2021-06-13 14:45] VITALS: BP 150/85; PULSE 90; TEMP 98
[2021-06-13] MEDS ORDERED: DOCUSATE SODIUM 100 MG CAPSULE (FP) PO SCH (22:00)
== END 2021-06-13 18:16 | disposition other institution (70) | DRG 422 ==
LOC: JER 17:04 → JERBED 21:37 → J8W 06-13 04:46
PROVIDERS: ADMIT Internal Medicine; ATTEND Family Medicine
DX: E86.0 Dehydration (principal); I73.9 Peripheral vascular disease, unspecified; J44.9 Chronic obstructive pulmonary disease, unspecified; F32.9 Major depressive disorder, single episode, unspecified; Z68.1 Body mass index [BMI] 19.9 or less, adult; Z59.0 Homelessness; R26.81 Unsteadiness on feet; F14.90 Cocaine use, unspecified, uncomplicated; R63.4 Abnormal weight loss; I10 Essential (primary) hypertension
CPT/HCPCS: 36415; 71046-TC-FY; 80048; 80053; 81003; 82550; 83735; 84484; 85025; 85610; 85730; 93005; 93010; 97116-GP; 97161-GP; 99285-25; C9803; U0003; U0005

== ENCOUNTER 2021-06-13 18:04 | Inpatient (IN) | payer OTHER ==
[2021-06-13] MEDS ORDERED: guaiFENesin 200 MG/10 ML 10 ML UNIT-DOSE CUPS PO PRN (22:01)
[2021-06-13] MEDS ORDERED: MAGNESIUM CITRATE 300 ML BOTTLE PO PRN (22:01)
[2021-06-13] MEDS ORDERED: LOPERAMIDE HCL 2 MG CAPSULE PO PRN (22:01)
[2021-06-13] MEDS ORDERED: P-EPHED 60MG/TRIPROLIDI 2.5MG TABLET PO PRN (22:01)
[2021-06-13] MEDS ORDERED: MAG HYDROX/AL HYDROX/SIMETH 30 ML UNIT-DOSE CUP PO PRN (22:01)
[2021-06-13] MEDS ORDERED: MAGNESIUM HYDROX 2400MG/30ML ORAL SUSPENSION 30 ML CUP PO PRN (22:01)
[2021-06-13] MEDS ORDERED: ALBUTEROL SO4 HFA INHALER IH PRN (22:08)
[2021-06-13 22:54] VITALS: BMI 19.7
[2021-06-13] MEDS: MELATONIN 5 MG TABLETS PO SCH (23:02)
[2021-06-13] MEDS: LIDOCAINE PATCH REMOVAL MC SCH (23:02)
[2021-06-14] MEDS: GABAPENTIN 300 MG CAPSULE PO SCH ×3 (06:29→21:47)
[2021-06-14] MEDS: amLODIPine BESYLATE 10 MG TABLET (FP) PO SCH (12:17)
[2021-06-14] MEDS: ASPIRIN COATED 81 MG TABLET.EC PO SCH (12:17)
[2021-06-14] MEDS: NICOTINE 14 MG/24 HOURS TOPICAL PATCH TD SCH (12:18)
[2021-06-14] MEDS: APIXABAN 2.5 MG TABLET PO SCH ×2 (12:18→21:47)
[2021-06-14] MEDS: LOSARTAN POTASSIUM 50 MG TABLET PO SCH (12:18)
[2021-06-14] MEDS: PRENATAL VITAMINS W/ FOLIC ACID TABLET (FP) PO SCH (12:18)
[2021-06-14] MEDS: hydrALAZINE HCL 10 MG TABLET PO SCH ×2 (12:19→21:47)
[2021-06-14] MEDS: LIDOCAINE 5% TOPICAL PATCH TP SCH (12:24)
[2021-06-14] MEDS: IBUPROFEN 400 MG TABLET (FP) PO PRN (12:58)
[2021-06-14] MEDS: POTASSIUM CHLORIDE ORAL LIQUID 20 MEQ/15 ML PO SCH ×2 (14:48→21:45)
[2021-06-14] MEDS: THIAMINE HCL 100 MG TABLET (FP) PO SCH (21:47)
[2021-06-14] MEDS: MELATONIN 5 MG TABLETS PO SCH (21:47)
[2021-06-14] MEDS: LIDOCAINE PATCH REMOVAL MC SCH (21:48)
[2021-06-15] MEDS: GABAPENTIN 300 MG CAPSULE PO SCH ×3 (06:22→21:14)
[2021-06-15] MEDS: IBUPROFEN 400 MG TABLET (FP) PO PRN ×2 (06:23→14:07)
[2021-06-15] MEDS: PRENATAL VITAMINS W/ FOLIC ACID TABLET (FP) PO SCH (09:31)
[2021-06-15] MEDS: LIDOCAINE 5% TOPICAL PATCH TP SCH (09:31)
[2021-06-15] MEDS: LOSARTAN POTASSIUM 50 MG TABLET PO SCH (09:31)
[2021-06-15] MEDS: amLODIPine BESYLATE 10 MG TABLET (FP) PO SCH (09:31)
[2021-06-15] MEDS: APIXABAN 2.5 MG TABLET PO SCH ×2 (09:31→21:15)
[2021-06-15] MEDS: ASPIRIN COATED 81 MG TABLET.EC PO SCH (09:31)
[2021-06-15] MEDS: hydrALAZINE HCL 10 MG TABLET PO SCH ×2 (09:31→21:14)
[2021-06-15] MEDS: NICOTINE 14 MG/24 HOURS TOPICAL PATCH TD SCH (09:31)
[2021-06-15 18:48] LABS: EPI CELLS >36 /uL (0-25.1); HYALINE CASTS 3 /uL (0-3.1); URINE APPEARANCE CLEAR; URINE BACTERIA 7 /uL (0-1359); URINE BILIRUBIN NEGATIVE (NEGATIVE); URINE COLOR YELLOW; URINE GLUCOSE (UA) NEGATIVE (NEGATIVE); URINE KETONE NEGATIVE (NEGATIVE); URINE LEUK ESTERASE 2+ (NEGATIVE); URINE NITRITE NEGATIVE (NEGATIVE); URINE PROTEIN NEGATIVE (NEGATIVE); URINE RBC 9 /uL (0-23.9); URINE UROBILINOGEN 0.2 mg/dL (0.2-1.0); URINE WBC 290 /uL (0-25.8)
[2021-06-15] MEDS: THIAMINE HCL 100 MG TABLET (FP) PO SCH (21:14)
[2021-06-15] MEDS: LIDOCAINE PATCH REMOVAL MC SCH (21:15)
[2021-06-15] MEDS: MELATONIN 5 MG TABLETS PO SCH (21:15)
[2021-06-16] MEDS: GABAPENTIN 300 MG CAPSULE PO SCH ×3 (06:44→21:32)
[2021-06-16] MEDS: IBUPROFEN 400 MG TABLET (FP) PO PRN ×2 (06:44→19:10)
[2021-06-16] MEDS: APIXABAN 2.5 MG TABLET PO SCH ×2 (10:08→21:33)
[2021-06-16] MEDS: hydrALAZINE HCL 10 MG TABLET PO SCH ×2 (10:08→21:32)
[2021-06-16] MEDS: PRENATAL VITAMINS W/ FOLIC ACID TABLET (FP) PO SCH (10:08)
[2021-06-16] MEDS: amLODIPine BESYLATE 10 MG TABLET (FP) PO SCH (10:09)
[2021-06-16] MEDS: ASPIRIN COATED 81 MG TABLET.EC PO SCH (10:09)
[2021-06-16] MEDS: LOSARTAN POTASSIUM 50 MG TABLET PO SCH (10:09)
[2021-06-16] MEDS: NICOTINE 14 MG/24 HOURS TOPICAL PATCH TD SCH (10:10)
[2021-06-16] MEDS: LIDOCAINE 5% TOPICAL PATCH TP SCH (10:10)
[2021-06-16] MEDS: MELATONIN 5 MG TABLETS PO SCH (21:32)
[2021-06-16] MEDS: THIAMINE HCL 100 MG TABLET (FP) PO SCH (21:32)
[2021-06-16] MEDS: LIDOCAINE PATCH REMOVAL MC SCH (21:33)
[2021-06-17] MEDS: GABAPENTIN 300 MG CAPSULE PO SCH ×3 (06:42→21:10)
[2021-06-17] MEDS: IBUPROFEN 400 MG TABLET (FP) PO PRN ×3 (06:42→21:11)
[2021-06-17] MEDS: NICOTINE 14 MG/24 HOURS TOPICAL PATCH TD SCH (10:52)
[2021-06-17] MEDS: amLODIPine BESYLATE 10 MG TABLET (FP) PO SCH (10:52)
[2021-06-17] MEDS: PRENATAL VITAMINS W/ FOLIC ACID TABLET (FP) PO SCH (10:52)
[2021-06-17] MEDS: ASPIRIN COATED 81 MG TABLET.EC PO SCH (10:52)
[2021-06-17] MEDS: LIDOCAINE 5% TOPICAL PATCH TP SCH (10:52)
[2021-06-17] MEDS: APIXABAN 2.5 MG TABLET PO SCH ×2 (10:52→21:10)
[2021-06-17] MEDS: LOSARTAN POTASSIUM 50 MG TABLET PO SCH (10:52)
[2021-06-17] MEDS: hydrALAZINE HCL 10 MG TABLET PO SCH ×2 (10:52→21:10)
[2021-06-17] MEDS: NICOTINE 10 MG CARTRIDGE (INHALER) IH PRN (16:58)
[2021-06-17] MEDS ORDERED: PT OWN MED DRAWER 7, Y5N ONE (18:42)
[2021-06-17] MEDS: MELATONIN 5 MG TABLETS PO SCH (21:10)
[2021-06-17] MEDS: THIAMINE HCL 100 MG TABLET (FP) PO SCH (21:10)
[2021-06-17] MEDS: LIDOCAINE PATCH REMOVAL MC SCH (21:12)
[2021-06-18] MEDS: GABAPENTIN 300 MG CAPSULE PO SCH ×3 (06:16→21:29)
[2021-06-18] MEDS: IBUPROFEN 400 MG TABLET (FP) PO PRN ×3 (06:16→21:30)
[2021-06-18] MEDS ORDERED: PT OWN MED DRAWER 7, Y5N ONE (08:55)
[2021-06-18] MEDS: ASPIRIN COATED 81 MG TABLET.EC PO SCH (10:02)
[2021-06-18] MEDS: LOSARTAN POTASSIUM 50 MG TABLET PO SCH (10:02)
[2021-06-18] MEDS: PRENATAL VITAMINS W/ FOLIC ACID TABLET (FP) PO SCH (10:02)
[2021-06-18] MEDS: amLODIPine BESYLATE 10 MG TABLET (FP) PO SCH (10:03)
[2021-06-18] MEDS: NICOTINE 14 MG/24 HOURS TOPICAL PATCH TD SCH (10:03)
[2021-06-18] MEDS: hydrALAZINE HCL 10 MG TABLET PO SCH ×2 (10:03→21:29)
[2021-06-18] MEDS: APIXABAN 2.5 MG TABLET PO SCH ×2 (10:03→21:31)
[2021-06-18] MEDS: LIDOCAINE 5% TOPICAL PATCH TP SCH (10:03)
[2021-06-18] MEDS: THIAMINE HCL 100 MG TABLET (FP) PO SCH (21:29)
[2021-06-18] MEDS: MELATONIN 5 MG TABLETS PO SCH (21:29)
[2021-06-18] MEDS: LIDOCAINE PATCH REMOVAL MC SCH (21:31)
[2021-06-19] MEDS: GABAPENTIN 300 MG CAPSULE PO SCH ×3 (06:56→21:14)
[2021-06-19] MEDS: IBUPROFEN 400 MG TABLET (FP) PO PRN ×2 (06:57→14:21)
[2021-06-19] MEDS: ASPIRIN COATED 81 MG TABLET.EC PO SCH (10:16)
[2021-06-19] MEDS: amLODIPine BESYLATE 10 MG TABLET (FP) PO SCH (10:16)
[2021-06-19] MEDS: APIXABAN 2.5 MG TABLET PO SCH ×2 (10:16→21:14)
[2021-06-19] MEDS: hydrALAZINE HCL 10 MG TABLET PO SCH ×2 (10:16→21:14)
[2021-06-19] MEDS: PRENATAL VITAMINS W/ FOLIC ACID TABLET (FP) PO SCH (10:16)
[2021-06-19] MEDS: LOSARTAN POTASSIUM 50 MG TABLET PO SCH (10:16)
[2021-06-19] MEDS: NICOTINE 14 MG/24 HOURS TOPICAL PATCH TD SCH (10:17)
[2021-06-19] MEDS: LIDOCAINE 5% TOPICAL PATCH TP SCH (10:18)
[2021-06-19] MEDS: MELATONIN 5 MG TABLETS PO SCH (21:13)
[2021-06-19] MEDS: THIAMINE HCL 100 MG TABLET (FP) PO SCH (21:13)
[2021-06-19] MEDS: LIDOCAINE PATCH REMOVAL MC SCH (21:14)
[2021-06-20] MEDS: IBUPROFEN 400 MG TABLET (FP) PO PRN ×2 (01:06→21:46)
[2021-06-20] MEDS: GABAPENTIN 300 MG CAPSULE PO SCH ×3 (06:36→21:44)
[2021-06-20] MEDS: hydrALAZINE HCL 10 MG TABLET PO SCH ×2 (09:55→21:44)
[2021-06-20] MEDS: amLODIPine BESYLATE 10 MG TABLET (FP) PO SCH (09:55)
[2021-06-20] MEDS: NICOTINE 14 MG/24 HOURS TOPICAL PATCH TD SCH (09:56)
[2021-06-20] MEDS: LOSARTAN POTASSIUM 50 MG TABLET PO SCH (09:56)
[2021-06-20] MEDS: APIXABAN 2.5 MG TABLET PO SCH ×2 (09:56→21:45)
[2021-06-20] MEDS: LIDOCAINE 5% TOPICAL PATCH TP SCH (09:56)
[2021-06-20] MEDS: ASPIRIN COATED 81 MG TABLET.EC PO SCH (09:56)
[2021-06-20] MEDS: PRENATAL VITAMINS W/ FOLIC ACID TABLET (FP) PO SCH (09:56)
[2021-06-20] MEDS ORDERED: PT OWN MED DRAWER 7, Y5N ONE (19:22)
[2021-06-20] MEDS: hydrOXYzine PAMOATE 25 MG CAPSULE (FP) PO PRN (21:45)
[2021-06-20] MEDS: THIAMINE HCL 100 MG TABLET (FP) PO SCH (21:45)
[2021-06-20] MEDS: MELATONIN 5 MG TABLETS PO SCH (21:45)
[2021-06-20] MEDS: LIDOCAINE PATCH REMOVAL MC SCH (21:46)
[2021-06-21] MEDS: METHOCARBAMOL 500 MG TABLET PO PRN (06:49)
[2021-06-21] MEDS: IBUPROFEN 400 MG TABLET (FP) PO PRN ×2 (06:49→21:21)
[2021-06-21] MEDS: GABAPENTIN 300 MG CAPSULE PO SCH ×3 (07:06→21:17)
[2021-06-21] MEDS ORDERED: PT OWN MED DRAWER 7, Y5N ONE ×2 (08:42→20:19)
[2021-06-21] MEDS: LOSARTAN POTASSIUM 50 MG TABLET PO SCH (09:44)
[2021-06-21] MEDS: APIXABAN 2.5 MG TABLET PO SCH ×2 (09:44→21:18)
[2021-06-21] MEDS: NICOTINE 14 MG/24 HOURS TOPICAL PATCH TD SCH (09:44)
[2021-06-21] MEDS: ASPIRIN COATED 81 MG TABLET.EC PO SCH (09:44)
[2021-06-21] MEDS: PRENATAL VITAMINS W/ FOLIC ACID TABLET (FP) PO SCH (09:44)
[2021-06-21] MEDS: hydrALAZINE HCL 10 MG TABLET PO SCH ×2 (09:44→21:17)
[2021-06-21] MEDS: LIDOCAINE 5% TOPICAL PATCH TP SCH (09:44)
[2021-06-21] MEDS: amLODIPine BESYLATE 10 MG TABLET (FP) PO SCH (09:44)
[2021-06-21] MEDS: NICOTINE 10 MG CARTRIDGE (INHALER) IH PRN (09:49)
[2021-06-21] MEDS: THIAMINE HCL 100 MG TABLET (FP) PO SCH (21:18)
[2021-06-21] MEDS: LIDOCAINE PATCH REMOVAL MC SCH (21:19)
[2021-06-21] MEDS: MELATONIN 5 MG TABLETS PO SCH (21:19)
[2021-06-21] MEDS: hydrOXYzine PAMOATE 25 MG CAPSULE (FP) PO PRN (21:20)
[2021-06-22] MEDS: IBUPROFEN 400 MG TABLET (FP) PO PRN ×3 (04:36→21:09)
[2021-06-22] MEDS: GABAPENTIN 300 MG CAPSULE PO SCH ×3 (06:24→21:06)
[2021-06-22] MEDS: amLODIPine BESYLATE 10 MG TABLET (FP) PO SCH (10:07)
[2021-06-22] MEDS: ASPIRIN COATED 81 MG TABLET.EC PO SCH (10:07)
[2021-06-22] MEDS: NICOTINE 14 MG/24 HOURS TOPICAL PATCH TD SCH (10:08)
[2021-06-22] MEDS: LOSARTAN POTASSIUM 50 MG TABLET PO SCH (10:08)
[2021-06-22] MEDS: PRENATAL VITAMINS W/ FOLIC ACID TABLET (FP) PO SCH (10:08)
[2021-06-22] MEDS: APIXABAN 2.5 MG TABLET PO SCH ×2 (10:08→21:07)
[2021-06-22] MEDS: LIDOCAINE 5% TOPICAL PATCH TP SCH (10:08)
[2021-06-22] MEDS: hydrALAZINE HCL 10 MG TABLET PO SCH ×2 (10:09→21:08)
[2021-06-22] MEDS: ACETAMINOPHEN 325 MG TABLET (FP) PO PRN (10:10)
[2021-06-22] MEDS: METHOCARBAMOL 500 MG TABLET PO PRN (13:28)
[2021-06-22] MEDS: MELATONIN 5 MG TABLETS PO SCH (21:06)
[2021-06-22] MEDS: THIAMINE HCL 100 MG TABLET (FP) PO SCH (21:06)
[2021-06-22] MEDS: LIDOCAINE PATCH REMOVAL MC SCH (21:07)
[2021-06-23] MEDS: GABAPENTIN 300 MG CAPSULE PO SCH ×3 (06:08→21:14)
[2021-06-23] MEDS: IBUPROFEN 400 MG TABLET (FP) PO PRN ×2 (06:09→21:14)
[2021-06-23] MEDS: ASPIRIN COATED 81 MG TABLET.EC PO SCH (10:01)
[2021-06-23] MEDS: hydrALAZINE HCL 10 MG TABLET PO SCH ×2 (10:02→21:13)
[2021-06-23] MEDS: amLODIPine BESYLATE 10 MG TABLET (FP) PO SCH (10:02)
[2021-06-23] MEDS: APIXABAN 2.5 MG TABLET PO SCH ×2 (10:02→21:11)
[2021-06-23] MEDS: LOSARTAN POTASSIUM 50 MG TABLET PO SCH (10:02)
[2021-06-23] MEDS: NICOTINE 14 MG/24 HOURS TOPICAL PATCH TD SCH (10:03)
[2021-06-23] MEDS: LIDOCAINE 5% TOPICAL PATCH TP SCH (10:03)
[2021-06-23] MEDS: PRENATAL VITAMINS W/ FOLIC ACID TABLET (FP) PO SCH (10:03)
[2021-06-23] MEDS: MELATONIN 5 MG TABLETS PO SCH (21:12)
[2021-06-23] MEDS: THIAMINE HCL 100 MG TABLET (FP) PO SCH (21:12)
[2021-06-23] MEDS: LIDOCAINE PATCH REMOVAL MC SCH (21:13)
[2021-06-23] MEDS: hydrOXYzine PAMOATE 25 MG CAPSULE (FP) PO PRN (21:13)
[2021-06-24] MEDS: IBUPROFEN 400 MG TABLET (FP) PO PRN ×2 (06:25→19:55)
[2021-06-24] MEDS: GABAPENTIN 300 MG CAPSULE PO SCH ×3 (06:25→21:59)
[2021-06-24] MEDS ORDERED: PT OWN MED DRAWER 7, Y5N ONE ×2 (09:31→20:09)
[2021-06-24] MEDS: PRENATAL VITAMINS W/ FOLIC ACID TABLET (FP) PO SCH (09:31)
[2021-06-24] MEDS: LOSARTAN POTASSIUM 50 MG TABLET PO SCH (09:32)
[2021-06-24] MEDS: ASPIRIN COATED 81 MG TABLET.EC PO SCH (09:32)
[2021-06-24] MEDS: hydrALAZINE HCL 10 MG TABLET PO SCH ×2 (09:32→21:59)
[2021-06-24] MEDS: amLODIPine BESYLATE 10 MG TABLET (FP) PO SCH (09:32)
[2021-06-24] MEDS: APIXABAN 2.5 MG TABLET PO SCH ×2 (09:33→21:59)
[2021-06-24] MEDS: NICOTINE 14 MG/24 HOURS TOPICAL PATCH TD SCH (09:33)
[2021-06-24] MEDS: LIDOCAINE 5% TOPICAL PATCH TP SCH (11:02)
[2021-06-24] MEDS: METHOCARBAMOL 500 MG TABLET PO PRN (19:55)
[2021-06-24] MEDS: MELATONIN 5 MG TABLETS PO SCH (21:59)
[2021-06-24] MEDS: THIAMINE HCL 100 MG TABLET (FP) PO SCH (21:59)
[2021-06-24] MEDS: LIDOCAINE PATCH REMOVAL MC SCH (22:00)
[2021-06-25] MEDS: ACETAMINOPHEN 325 MG TABLET (FP) PO PRN (00:36)
[2021-06-25] MEDS: IBUPROFEN 400 MG TABLET (FP) PO PRN (07:22)
[2021-06-25] MEDS: GABAPENTIN 300 MG CAPSULE PO SCH ×3 (07:23→21:23)
[2021-06-25] MEDS: amLODIPine BESYLATE 10 MG TABLET (FP) PO SCH (09:44)
[2021-06-25] MEDS: PRENATAL VITAMINS W/ FOLIC ACID TABLET (FP) PO SCH (09:44)
[2021-06-25] MEDS: ASPIRIN COATED 81 MG TABLET.EC PO SCH (09:44)
[2021-06-25] MEDS: NICOTINE 14 MG/24 HOURS TOPICAL PATCH TD SCH (09:44)
[2021-06-25] MEDS: LOSARTAN POTASSIUM 50 MG TABLET PO SCH (09:44)
[2021-06-25] MEDS: hydrALAZINE HCL 10 MG TABLET PO SCH ×2 (09:45→21:23)
[2021-06-25] MEDS: LIDOCAINE 5% TOPICAL PATCH TP SCH (09:47)
[2021-06-25] MEDS: APIXABAN 2.5 MG TABLET PO SCH ×2 (09:47→21:23)
[2021-06-25] MEDS: METHOCARBAMOL 750 MG TAB PO PRN (12:30)
[2021-06-25] MEDS: MELATONIN 5 MG TABLETS PO SCH (21:23)
[2021-06-25] MEDS: THIAMINE HCL 100 MG TABLET (FP) PO SCH (21:23)
[2021-06-25] MEDS: LIDOCAINE PATCH REMOVAL MC SCH (21:24)
[2021-06-26] MEDS: GABAPENTIN 300 MG CAPSULE PO SCH ×3 (06:34→21:19)
[2021-06-26] MEDS: METHOCARBAMOL 750 MG TAB PO PRN ×2 (06:34→14:24)
[2021-06-26] MEDS: amLODIPine BESYLATE 10 MG TABLET (FP) PO SCH (10:06)
[2021-06-26] MEDS: NICOTINE 14 MG/24 HOURS TOPICAL PATCH TD SCH (10:06)
[2021-06-26] MEDS: APIXABAN 2.5 MG TABLET PO SCH ×2 (10:06→21:21)
[2021-06-26] MEDS: LOSARTAN POTASSIUM 50 MG TABLET PO SCH (10:06)
[2021-06-26] MEDS: ASPIRIN COATED 81 MG TABLET.EC PO SCH (10:06)
[2021-06-26] MEDS: LIDOCAINE 5% TOPICAL PATCH TP SCH (10:06)
[2021-06-26] MEDS: PRENATAL VITAMINS W/ FOLIC ACID TABLET (FP) PO SCH (10:06)
[2021-06-26] MEDS: hydrALAZINE HCL 10 MG TABLET PO SCH ×2 (10:06→21:19)
[2021-06-26] MEDS: ACETAMINOPHEN 325 MG TABLET (FP) PO PRN ×2 (10:08→21:21)
[2021-06-26] MEDS ORDERED: PT OWN MED DRAWER 7, Y5N ONE ×2 (19:20→19:21)
[2021-06-26] MEDS: MELATONIN 5 MG TABLETS PO SCH (21:20)
[2021-06-26] MEDS: THIAMINE HCL 100 MG TABLET (FP) PO SCH (21:20)
[2021-06-26] MEDS: LIDOCAINE PATCH REMOVAL MC SCH (21:21)
[2021-06-27] MEDS: ACETAMINOPHEN 325 MG TABLET (FP) PO PRN ×2 (02:55→09:15)
[2021-06-27] MEDS: METHOCARBAMOL 750 MG TAB PO PRN (06:38)
[2021-06-27] MEDS: GABAPENTIN 300 MG CAPSULE PO SCH (06:38)
[2021-06-27 07:03] VITALS: BP 144/88; PULSE 80; TEMP 97.3
[2021-06-27] MEDS: ASPIRIN COATED 81 MG TABLET.EC PO SCH (09:10)
[2021-06-27] MEDS: APIXABAN 2.5 MG TABLET PO SCH (09:10)
[2021-06-27] MEDS: PRENATAL VITAMINS W/ FOLIC ACID TABLET (FP) PO SCH (09:10)
[2021-06-27] MEDS: amLODIPine BESYLATE 10 MG TABLET (FP) PO SCH (09:10)
[2021-06-27] MEDS: hydrALAZINE HCL 10 MG TABLET PO SCH (09:11)
[2021-06-27] MEDS: LOSARTAN POTASSIUM 50 MG TABLET PO SCH (09:12)
[2021-06-27] MEDS: NICOTINE 14 MG/24 HOURS TOPICAL PATCH TD SCH (09:13)
[2021-06-27] MEDS: LIDOCAINE 5% TOPICAL PATCH TP SCH (09:13)
== END 2021-06-27 10:05 | disposition home or self-care (01) | DRG 772 ==
LOC: YASAS 18:04 → Y3W 22:13 → Y5N 06-21 09:41 → Y3W 06-25 14:14
PROVIDERS: ADMIT Allergy & Immunology; ATTEND Allergy & Immunology
PROC: HZ42ZZZ Group Counseling for Substance Abuse Treatment, Cognitive-Behavioral (ICD-10-PCS; principal; 2021-06-13)
DX: F14.20 Cocaine dependence, uncomplicated (principal); F16.20 Hallucinogen dependence, uncomplicated; E87.6 Hypokalemia; I10 Essential (primary) hypertension; I73.9 Peripheral vascular disease, unspecified; J44.9 Chronic obstructive pulmonary disease, unspecified; M06.9 Rheumatoid arthritis, unspecified; R26.81 Unsteadiness on feet; R29.6 Repeated falls; R53.1 Weakness; I25.2 Old myocardial infarction; Z79.01 Long term (current) use of anticoagulants; Z86.16 Personal history of COVID-19; Z99.89 Dependence on other enabling machines and devices; Z89.611 Acquired absence of right leg above knee; W05.0XXA Fall from non-moving wheelchair, initial encounter; Y93.89 Activity, other specified; Y92.231 Patient bathroom in hospital as the place of occurrence of the external cause
CPT/HCPCS: 36415; 81003; 84132; 86780

== ENCOUNTER 2021-06-24 10:07 | Emergency (ER) | payer OTHER ==
[2021-06-24 10:18] VITALS: BMI 21.2
[2021-06-24] MEDS ORDERED: LIDOCAINE 5% TOPICAL PATCH TP ONE (10:22)
[2021-06-24] MEDS ORDERED: LIDOCAINE 5% TOPICAL PATCH ONE (10:26)
[2021-06-24] MEDS ORDERED: ACETAMINOPHEN 325 MG TABLET (FP) PO ONE (11:03)
[2021-06-24] MEDS ORDERED: ACETAMINOPHEN 325 MG TABLET (FP) ONE (11:16)
[2021-06-24] MEDS ORDERED: GABAPENTIN 300 MG CAPSULE PO ONE (13:11)
[2021-06-24] MEDS ORDERED: GABAPENTIN 100 MG CAPSULE ONE (13:31)
[2021-06-24 14:58] VITALS: BP 112/68; PULSE 72; TEMP 97.9
== END 2021-06-24 14:50 | disposition home or self-care (01) ==
LOC: JER 10:07
DX: S39.012A Strain of muscle, fascia and tendon of lower back, initial encounter (principal); W05.0XXA Fall from non-moving wheelchair, initial encounter
CPT/HCPCS: 70450-TC; 72131-TC; 99284-25

== ENCOUNTER 2021-07-13 16:45 | Inpatient (IN) | payer OTHER ==
[2021-07-13 17:09] VITALS: BMI 20.7
[2021-07-13] MEDS ORDERED: SODIUM CHLORIDE 0.9% 500 ML INFUS.BAG IV ONE (18:17)
[2021-07-13] MEDS ORDERED: ACETAMINOPHEN 1000 MG/100 ML VIAL (NON FORMULARY) IVPB ONE (18:17)
[2021-07-13] MEDS ORDERED: ACETAMINOPHEN INJECTION 100 ML IVPB ONE (18:31)
[2021-07-13 19:05] LABS: EOS % 0.3 % (0-4.5); HEMATOCRIT 42.3 % (35.4-49); HEMOGLOBIN 14.6 GM/dL (11.7-16.9); LYMPH % 14.5 % (8-40); MCH 29.5 pg (25.7-33.7); MCHC 34.4 g/dl (32.0-35.9); MEAN CELL VOLUME 85.7 fl (80-96); MEAN PLT VOLUME 11.1 fl (7.5-11.1); MONO % 10.4 % (3.8-10.2); NEUT % 73.8 % (42.8-82.8); PLATELET COUNT 98 10^3/uL (134-434); RBC 4.93 M/mm3 (4.00-5.60); WHITE BLOOD COUNT 12.2 K/mm3 (4.0-10.0)
[2021-07-13 19:12] LABS: INR 1.38 (0.83-1.09); PROTHROMBIN TIME (PATIENT) 16.6 SEC (9.7-13.0)
[2021-07-13 19:14] LABS: ACTIVATED PTT 30.7 SECONDS (25.2-36.5)
[2021-07-13 19:25] LABS: CHLORIDE 100 mmol/L (98-107); SODIUM 137 mmol/L (136-145)
[2021-07-13 19:27] LABS: ANION GAP 9 MMOL/L (8-16); BLOOD UREA NITROGEN 28.7 mg/dL (7-18); CALCIUM 8.7 mg/dL (8.5-10.1); CO2 28 mmol/L (21-32)
[2021-07-13 19:28] LABS: GLUCOSE,RANDOM 113 mg/dL (74-106)
[2021-07-13 19:31] LABS: CREATININE 1.1 mg/dL (0.55-1.3); SGOT/AST 18 U/L (15-37); SGPT/ALT 24 U/L (13-61)
[2021-07-13 19:32] LABS: BILIRUBIN,TOTAL 1.1 mg/dL (0.2-1); TOT PROT 7.7 g/dl (6.4-8.2)
[2021-07-13 19:33] LABS: ALK PHOS 126 U/L (45-117)
[2021-07-13] MEDS ORDERED: POTASSIUM CHLORIDE TABS 20 MEQ TABLET.ER (FP) PO ONE ×2 (19:50→20:43)
[2021-07-13] MEDS ORDERED: MAGNESIUM SULF 50% (8.12 MEQ/2 ML-1 GM VIAL) IVPB ONE (19:50)
[2021-07-13] MEDS ORDERED: MAGNESIUM SULFATE IN WATER 2 GM/50 ML IVPB IVPB ONE (20:43)
[2021-07-13] MEDS ORDERED: CEFTRIAXONE 1 GM in DEXTROSE 5%-WATER - 50 ML IVPB ONE (21:55)
[2021-07-13] MEDS ORDERED: AZITHROMYCIN IVPB 500 MG in DEXTROSE 5%-WATER - 250 ML IVPB ONE (21:55)
[2021-07-13] MEDS ORDERED: ENOXAPARIN NA (PORCINE) 80 MG/0.8 ML DISP.SYRIN SQ ONE ×2 (23:02→23:25)
[2021-07-13] MEDS ORDERED: CEFTRIAXONE 1 GM/50 ML BAG ONE (23:25)
[2021-07-14] MEDS ORDERED: morphine CARPU-JECT 4 MG/1 ML DISP.SYRIN IVPUSH ONE (00:10)
[2021-07-14] MEDS ORDERED: morphine SULFATE 4 MG/ML VIAL ONE (01:06)
[2021-07-14] MEDS ORDERED: AZITHROMYCIN IVPB 500 MG/250 ML BAG IVPB ONE (01:41)
[2021-07-14] MEDS ORDERED: ALBUTEROL SO4 HFA INHALER IH PRN (04:51)
[2021-07-14] MEDS ORDERED: ALBUTEROL SO4 2.5/IPRATROPIUM 0.5 INH SOL 3 ML VIAL.NEB. NEB PRN (04:55)
[2021-07-14] MEDS ORDERED: ACETAMINOPHEN 325 MG TABLET (FP) ONE ×3 (06:38→21:50)
[2021-07-14] MEDS: ACETAMINOPHEN 325 MG TABLET (FP) PO PRN ×3 (06:42→21:58)
[2021-07-14 10:13] LABS: BASO % 0.3 % (0-2.0); EOS % 1.4 % (0-4.5); HEMATOCRIT 38.5 % (35.4-49); HEMOGLOBIN 13.5 GM/dL (11.7-16.9); LYMPH % 20.4 % (8-40); MEAN CELL VOLUME 85.7 fl (80-96); MEAN PLT VOLUME 11.3 fl (7.5-11.1); NEUT % 65.9 % (42.8-82.8); PLATELET COUNT 64 10^3/uL (134-434); RBC 4.49 M/mm3 (4.00-5.60); WHITE BLOOD COUNT 10.1 K/mm3 (4.0-10.0)
[2021-07-14 10:37] LABS: CALCIUM 8.3 mg/dL (8.5-10.1)
[2021-07-14 10:38] LABS: ALBUMIN 2.4 g/dl (3.4-5.0); BLOOD UREA NITROGEN 18.6 mg/dL (7-18)
[2021-07-14 10:41] LABS: CREATININE 0.9 mg/dL (0.55-1.3)
[2021-07-14 10:43] LABS: BILIRUBIN,TOTAL 1.1 mg/dL (0.2-1); TOT PROT 6.5 g/dl (6.4-8.2)
[2021-07-14] MEDS ORDERED: ENOXAPARIN NA (PORCINE) 80 MG/0.8 ML DISP.SYRIN SQ ONE (14:53)
[2021-07-14] MEDS: ENOXAPARIN NA (PORCINE) 80 MG/0.8 ML DISP.SYRIN SQ SCH (14:56)
[2021-07-15] MEDS ORDERED: ENOXAPARIN NA (PORCINE) 80 MG/0.8 ML DISP.SYRIN SQ ONE (01:23)
[2021-07-15] MEDS: ENOXAPARIN NA (PORCINE) 80 MG/0.8 ML DISP.SYRIN SQ SCH ×2 (01:39→14:45)
[2021-07-15 07:11] LABS: BASO % 0.4 % (0-2.0); EOS % 2.2 % (0-4.5); HEMATOCRIT 39.3 % (35.4-49); HEMOGLOBIN 13.8 GM/dL (11.7-16.9); LYMPH % 18.6 % (8-40); MCH 30.1 pg (25.7-33.7); MCHC 35.1 g/dl (32.0-35.9); MEAN CELL VOLUME 85.7 fl (80-96); MEAN PLT VOLUME 11.7 fl (7.5-11.1); MONO % 10.2 % (3.8-10.2); NEUT % 68.6 % (42.8-82.8); PLATELET COUNT 59 10^3/uL (134-434); RBC 4.59 M/mm3 (4.00-5.60); RDW 13.4 % (11.9-15.9); WHITE BLOOD COUNT 8.5 K/mm3 (4.0-10.0)
[2021-07-15 07:30] LABS: ALBUMIN 2.3 g/dl (3.4-5.0); BLOOD UREA NITROGEN 16.3 mg/dL (7-18); CALCIUM 8.3 mg/dL (8.5-10.1); TOT PROT 6.4 g/dl (6.4-8.2)
[2021-07-15 07:34] LABS: CREATININE 0.8 mg/dL (0.55-1.3)
[2021-07-15 07:35] LABS: BILIRUBIN,TOTAL 1.4 mg/dL (0.2-1)
[2021-07-15] MEDS ORDERED: ACETAMINOPHEN 325 MG TABLET (FP) ONE (09:02)
[2021-07-15] MEDS: ACETAMINOPHEN 325 MG TABLET (FP) PO PRN ×2 (09:30→21:22)
[2021-07-15] MEDS ORDERED: POTASSIUM CHLORIDE TABS 20 MEQ TABLET.ER (FP) PO ONE ×2 (09:33→10:00)
[2021-07-15] MEDS: traMADol HCL 50 MG TABLET PO PRN (17:47)
[2021-07-15] MEDS ORDERED: DOCUSATE SODIUM 100 MG CAPSULE (FP) PO PRN (17:55)
[2021-07-15] MEDS ORDERED: PT OWN MED DRAWER 7, Y5N ONE (19:34)
[2021-07-15] MEDS: METHIMAZOLE 5 MG TABLET PO SCH (19:38)
[2021-07-15] MEDS: LIDOCAINE PATCH REMOVAL MC SCH (21:12)
[2021-07-15] MEDS: GABAPENTIN 300 MG CAPSULE PO SCH (21:22)
[2021-07-16] MEDS: ENOXAPARIN NA (PORCINE) 80 MG/0.8 ML DISP.SYRIN SQ SCH ×3 (02:02→22:56)
[2021-07-16] MEDS: METHIMAZOLE 5 MG TABLET PO SCH ×3 (02:03→17:23)
[2021-07-16] MEDS ORDERED: PT OWN MED DRAWER 7, Y5N ONE ×3 (06:16→17:29)
[2021-07-16] MEDS: GABAPENTIN 300 MG CAPSULE PO SCH ×3 (06:26→21:19)
[2021-07-16 08:03] LABS: HEMATOCRIT 37.6 % (35.4-49); HEMOGLOBIN 13.1 GM/dL (11.7-16.9); MCH 29.7 pg (25.7-33.7); MCHC 34.9 g/dl (32.0-35.9); MEAN CELL VOLUME 85.3 fl (80-96); MEAN PLT VOLUME 11.8 fl (7.5-11.1); PLATELET COUNT 59 10^3/uL (134-434); RDW 13.5 % (11.9-15.9); WHITE BLOOD COUNT 7.9 K/mm3 (4.0-10.0)
[2021-07-16 08:14] LABS: ALBUMIN 2.2 g/dl (3.4-5.0); BLOOD UREA NITROGEN 13.2 mg/dL (7-18); CALCIUM 8.3 mg/dL (8.5-10.1); MAGNESIUM 1.8 mg/dL (1.8-2.4)
[2021-07-16 08:18] LABS: CREATININE 0.7 mg/dL (0.55-1.3)
[2021-07-16 08:19] LABS: BILIRUBIN,TOTAL 0.5 mg/dL (0.2-1)
[2021-07-16] MEDS ORDERED: DULoxetine HCL 30 MG CAPSULE.DR PO ONE (09:10)
[2021-07-16] MEDS: traMADol HCL 50 MG TABLET PO PRN ×2 (09:59→22:59)
[2021-07-16] MEDS: DULoxetine HCL 60 MG CAPSULE.DR PO SCH (10:01)
[2021-07-16] MEDS: LIDOCAINE 5% TOPICAL PATCH TP SCH (10:03)
[2021-07-16] MEDS ORDERED: POTASSIUM CHLORIDE TABS 20 MEQ TABLET.ER (FP) PO ONE ×3 (12:10→16:00)
[2021-07-16] MEDS: KCL 10 MEQ IVPB 10 MEQ/100 ML INFUS.BAG IVPB SCH ×3 (12:39→14:51)
[2021-07-16] MEDS: LIDOCAINE PATCH REMOVAL MC SCH (21:18)
[2021-07-17] MEDS ORDERED: PT OWN MED DRAWER 7, Y5N ONE ×4 (01:21→17:05)
[2021-07-17] MEDS: METHIMAZOLE 5 MG TABLET PO SCH ×3 (01:29→17:42)
[2021-07-17] MEDS: GABAPENTIN 300 MG CAPSULE PO SCH ×3 (06:34→21:09)
[2021-07-17] MEDS ORDERED: DULoxetine HCL 30 MG CAPSULE.DR PO ONE ×2 (09:05→09:32)
[2021-07-17 09:22] LABS: ALBUMIN 2.2 g/dl (3.4-5.0); CALCIUM 8.2 mg/dL (8.5-10.1)
[2021-07-17 09:23] LABS: BLOOD UREA NITROGEN 11.2 mg/dL (7-18); MAGNESIUM 1.8 mg/dL (1.8-2.4)
[2021-07-17 09:26] LABS: CREATININE 0.7 mg/dL (0.55-1.3)
[2021-07-17 09:27] LABS: BILIRUBIN,TOTAL 0.6 mg/dL (0.2-1); TOT PROT 6.1 g/dl (6.4-8.2)
[2021-07-17] MEDS: DULoxetine HCL 60 MG CAPSULE.DR PO SCH (09:39)
[2021-07-17] MEDS: LIDOCAINE 5% TOPICAL PATCH TP SCH (09:39)
[2021-07-17] MEDS: ENOXAPARIN NA (PORCINE) 80 MG/0.8 ML DISP.SYRIN SQ SCH ×2 (09:43→21:09)
[2021-07-17] MEDS: LIDOCAINE PATCH REMOVAL MC SCH (21:07)
[2021-07-18] MEDS: METHIMAZOLE 5 MG TABLET PO SCH ×3 (01:10→18:47)
[2021-07-18] MEDS: GABAPENTIN 300 MG CAPSULE PO SCH ×2 (06:10→14:23)
[2021-07-18] MEDS: traMADol HCL 50 MG TABLET PO PRN (09:04)
[2021-07-18] MEDS ORDERED: DULoxetine HCL 30 MG CAPSULE.DR PO ONE (10:10)
[2021-07-18] MEDS ORDERED: PT OWN MED DRAWER 7, Y5N ONE ×2 (10:11→18:41)
[2021-07-18] MEDS: ENOXAPARIN NA (PORCINE) 80 MG/0.8 ML DISP.SYRIN SQ SCH (10:14)
[2021-07-18] MEDS: DULoxetine HCL 60 MG CAPSULE.DR PO SCH (10:16)
[2021-07-18] MEDS: LIDOCAINE 5% TOPICAL PATCH TP SCH (10:16)
[2021-07-18 12:33] LABS: BLOOD UREA NITROGEN 8.5 mg/dL (7-18); CALCIUM 8.4 mg/dL (8.5-10.1); MAGNESIUM 1.7 mg/dL (1.8-2.4)
[2021-07-18 12:36] LABS: CREATININE 0.8 mg/dL (0.55-1.3)
[2021-07-19] MEDS: ENOXAPARIN NA (PORCINE) 80 MG/0.8 ML DISP.SYRIN SQ SCH ×3 (00:10→22:13)
[2021-07-19] MEDS: GABAPENTIN 300 MG CAPSULE PO SCH ×4 (00:10→22:13)
[2021-07-19] MEDS: LIDOCAINE PATCH REMOVAL MC SCH ×2 (00:10→22:15)
[2021-07-19] MEDS ORDERED: PT OWN MED DRAWER 7, Y5N ONE ×3 (02:04→17:06)
[2021-07-19] MEDS: METHIMAZOLE 5 MG TABLET PO SCH ×3 (02:04→17:49)
[2021-07-19] MEDS ORDERED: DULoxetine HCL 30 MG CAPSULE.DR PO ONE (09:03)
[2021-07-19] MEDS: DULoxetine HCL 60 MG CAPSULE.DR PO SCH (09:07)
[2021-07-19] MEDS: LIDOCAINE 5% TOPICAL PATCH TP SCH (09:17)
[2021-07-19 10:54] LABS: CALCIUM 8.3 mg/dL (8.5-10.1)
[2021-07-19 10:55] LABS: BLOOD UREA NITROGEN 8.3 mg/dL (7-18); MAGNESIUM 1.6 mg/dL (1.8-2.4)
[2021-07-19 10:59] LABS: CREATININE 0.8 mg/dL (0.55-1.3)
[2021-07-20] MEDS: METHIMAZOLE 5 MG TABLET PO SCH ×3 (05:42→18:31)
[2021-07-20] MEDS: GABAPENTIN 300 MG CAPSULE PO SCH ×3 (05:47→21:55)
[2021-07-20] MEDS ORDERED: DULoxetine HCL 30 MG CAPSULE.DR PO ONE (10:08)
[2021-07-20] MEDS ORDERED: PT OWN MED DRAWER 7, Y5N ONE ×2 (10:09→18:10)
[2021-07-20] MEDS: DULoxetine HCL 60 MG CAPSULE.DR PO SCH (10:12)
[2021-07-20] MEDS: LIDOCAINE 5% TOPICAL PATCH TP SCH (10:12)
[2021-07-20] MEDS: ENOXAPARIN NA (PORCINE) 80 MG/0.8 ML DISP.SYRIN SQ SCH ×2 (10:13→21:55)
[2021-07-20] MEDS: LIDOCAINE PATCH REMOVAL MC SCH (21:56)
[2021-07-21 01:35] LABS: EPI CELLS 25 /uL (0-25.1); HYALINE CASTS 25 /uL (0-3.1); PH,URINE 5.5 (5.0-8.0); URINE APPEARANCE CLOUDY; URINE BACTERIA 100 /uL (0-1359); URINE BILIRUBIN 1+ (NEGATIVE); URINE COLOR DK YELLOW; URINE GLUCOSE (UA) NEGATIVE (NEGATIVE); URINE KETONE TRACE (NEGATIVE); URINE LEUK ESTERASE 2+ (NEGATIVE); URINE NITRITE NEGATIVE (NEGATIVE); URINE PROTEIN TRACE (NEGATIVE); URINE RBC 26 /uL (0-23.9); URINE WBC 754 /uL (0-25.8)
[2021-07-21] MEDS: METHIMAZOLE 5 MG TABLET PO SCH ×3 (04:12→17:00)
[2021-07-21] MEDS: GABAPENTIN 300 MG CAPSULE PO SCH ×3 (06:21→21:07)
[2021-07-21 07:40] LABS: BASO % 0.7 % (0-2.0); EOS % 6.5 % (0-4.5); HEMATOCRIT 36.6 % (35.4-49); HEMOGLOBIN 12.6 GM/dL (11.7-16.9); LYMPH % 29.9 % (8-40); MCH 28.7 pg (25.7-33.7); MCHC 34.4 g/dl (32.0-35.9); MEAN CELL VOLUME 83.5 fl (80-96); MEAN PLT VOLUME 10.2 fl (7.5-11.1); MONO % 7.2 % (3.8-10.2); NEUT % 55.7 % (42.8-82.8); PLATELET COUNT 175 10^3/uL (134-434); RBC 4.38 M/mm3 (4.00-5.60); RDW 13.7 % (11.9-15.9); WHITE BLOOD COUNT 6.5 K/mm3 (4.0-10.0)
[2021-07-21 07:55] LABS: CALCIUM 8.3 mg/dL (8.5-10.1)
[2021-07-21 07:56] LABS: ALBUMIN 2.4 g/dl (3.4-5.0); BLOOD UREA NITROGEN 7.4 mg/dL (7-18); MAGNESIUM 1.8 mg/dL (1.8-2.4)
[2021-07-21 07:59] LABS: CREATININE 0.9 mg/dL (0.55-1.3)
[2021-07-21 08:01] LABS: BILIRUBIN,TOTAL 0.9 mg/dL (0.2-1); TOT PROT 6.3 g/dl (6.4-8.2)
[2021-07-21] MEDS ORDERED: DULoxetine HCL 30 MG CAPSULE.DR PO ONE (09:36)
[2021-07-21] MEDS ORDERED: PT OWN MED DRAWER 7, Y5N ONE ×2 (09:38→16:56)
[2021-07-21] MEDS: ENOXAPARIN NA (PORCINE) 80 MG/0.8 ML DISP.SYRIN SQ SCH ×2 (09:50→21:07)
[2021-07-21] MEDS: DULoxetine HCL 60 MG CAPSULE.DR PO SCH (09:51)
[2021-07-21] MEDS: LIDOCAINE 5% TOPICAL PATCH TP SCH (10:18)
[2021-07-21] MEDS: LIDOCAINE PATCH REMOVAL MC SCH (21:07)
[2021-07-22] MEDS ORDERED: PT OWN MED DRAWER 7, Y5N ONE ×2 (02:29→09:12)
[2021-07-22] MEDS: METHIMAZOLE 5 MG TABLET PO SCH ×2 (02:33→09:23)
[2021-07-22] MEDS: GABAPENTIN 300 MG CAPSULE PO SCH ×2 (05:21→14:01)
[2021-07-22] MEDS ORDERED: DULoxetine HCL 30 MG CAPSULE.DR PO ONE (09:11)
[2021-07-22] MEDS: DULoxetine HCL 60 MG CAPSULE.DR PO SCH (09:23)
[2021-07-22] MEDS: LIDOCAINE 5% TOPICAL PATCH TP SCH (09:24)
[2021-07-22] MEDS ORDERED: APIXABAN 5 MG TABLET PO SCH ×2 (10:00→22:00)
[2021-07-22 11:29] VITALS: BP 120/75; PULSE 70; TEMP 98
[2021-07-22] MEDS ORDERED: APIXABAN 5 MG TABLET PO ONE (11:45)
== END 2021-07-22 13:10 | DRG 134 ==
LOC: JER 16:45 → JERBED 07-14 00:30 → J4W 07-15 14:16
PROVIDERS: ADMIT Internal Medicine; ATTEND Family Medicine
DX: I26.99 Other pulmonary embolism without acute cor pulmonale (principal); E46 Unspecified protein-calorie malnutrition; F11.20 Opioid dependence, uncomplicated; F14.20 Cocaine dependence, uncomplicated; Z89.619 Acquired absence of unspecified leg above knee; R04.2 Hemoptysis; E87.6 Hypokalemia; I10 Essential (primary) hypertension; I73.9 Peripheral vascular disease, unspecified; I82.402 Acute embolism and thrombosis of unspecified deep veins of left lower extremity; J44.9 Chronic obstructive pulmonary disease, unspecified; Z68.20 Body mass index [BMI] 20.0-20.9, adult; F17.210 Nicotine dependence, cigarettes, uncomplicated
CPT/HCPCS: 36415; 71045-TC-FY; 71275-TC; 80048; 80053; 81003; 82550; 83735; 84439; 84443; 84484; 85025; 85027; 85610; 85730; 87040; 87070; 87205; 93005; 93010; 93306-TC; 93971-TC; 97116-GP; 97162-GP; 99285-25; C9803; J0131; Q9967; U0003; U0005

== ENCOUNTER 2022-01-16 21:25 | Emergency (ER) | payer OTHER ==
[2022-01-16 21:45] VITALS: TEMP 98.4; BMI 20.7
[2022-01-16] MEDS ORDERED: LIDOCAINE PATCH REMOVAL MC SCH (22:00)
[2022-01-16] MEDS ORDERED: LIDOCAINE 5% TOPICAL PATCH TP ONE (22:50)
[2022-01-16] MEDS ORDERED: KETOROLAC TROMETHAMINE 30 MG/1 ML VIAL IM ONE (22:50)
[2022-01-16] MEDS ORDERED: METHOCARBAMOL 500 MG TABLET PO ONE (22:50)
[2022-01-17] MEDS ORDERED: METHOCARBAMOL 500 MG TABLET ONE (00:28)
[2022-01-17] MEDS ORDERED: KETOROLAC TROMETHAMINE 30 MG/1 ML VIAL ONE (00:29)
[2022-01-17] MEDS ORDERED: LIDOCAINE 5% TOPICAL PATCH ONE (00:29)
[2022-01-17 08:33] VITALS: BP 134/68; PULSE 57
== END 2022-01-17 08:45 ==
LOC: JER 21:25
PROC: 3E023GC Introduction of Other Therapeutic Substance into Muscle, Percutaneous Approach (ICD-10-PCS; principal; 2022-01-16)
DX: M54.50 Low back pain, unspecified (principal)
CPT/HCPCS: 99284-25

== ENCOUNTER 2024-03-06 12:40 | Emergency (ER) | payer OTHER ==
[2024-03-06 12:58] VITALS: RESP 20; TEMP 97.8; BMI 19.8
[2024-03-06 17:03] VITALS: BP 142/87; PULSE 57
== END 2024-03-06 17:11 ==
LOC: JER 12:40
DX: G54.6 Phantom limb syndrome with pain (principal); G89.29 Other chronic pain
CPT/HCPCS: 99283-25

== ENCOUNTER 2025-04-03 11:59 | Inpatient (IN) | payer OTHER ==
[2025-04-03 13:52] LABS: ABSOLUTE IMMATURE GRANULOCYTES 0.02 x10^3/uL (0.0-0.031); BASOPHILS # 0.02 x10^3/uL (0.01-0.08); EOSINOPHILS # 0.09 x10^3/uL (0.04-0.54); HEMOGLOBIN 14.6 g/dL (13.7-17.5); MCHC 29.8 g/dl (32.3-36.5); MEAN CELL VOLUME 86.3 fl (79.0-92.2); MEAN PLT VOLUME 11.6 fl (9.4-12.4); MONOCYTE # 0.43 x10^3/uL (0.30-0.82); MONOCYTE % 4.8 % (5.3-12.2); PLATELET COUNT 194 x10^3/uL (163-337); RDW 17.9 % (12.2-16.4)
[2025-04-03 13:53] LABS: VENOUS BASE EXCESS -4.2 mmol/L (-2-2); VENOUS O2 SATURATION 71.4 % (70-80); VENOUS PCO2 48.3 mmHg (38-52); VENOUS PH 7.289 (7.310-7.410)
[2025-04-03 13:59] LABS: INR 1.47 (0.83-1.09)
[2025-04-03 14:22] LABS: POTASSIUM 4.3 mmol/L (3.5-5.1)
[2025-04-03 14:28] LABS: BLOOD UREA NITROGEN 40.6 mg/dL (7-18); CALCIUM 9.1 mg/dL (8.5-10.1)
[2025-04-03 14:32] LABS: CREATININE 1.5 mg/dL (0.55-1.3)
[2025-04-03 14:33] LABS: BILIRUBIN,TOTAL 0.6 mg/dL (0.2-1); TOT PROT 7.5 g/dl (6.4-8.2)
[2025-04-03 14:39] LABS: LACTIC ACID 3.3 mmol/L (0.4-2.0)
[2025-04-03] MEDS ORDERED: ACETAMINOPHEN INJECTION 100 ML ONE (14:39)
[2025-04-03] MEDS: ACETAMINOPHEN 1000 MG/100 ML BAG IVPB ONE (14:45)
[2025-04-03] MEDS: SODIUM CHLORIDE 0.9% 500 ML INFUS.BAG IV ONE (14:45)
[2025-04-03] MEDS ORDERED: PIPERACILLIN/TAZOB 4.5 GM 4.5 GM/100 ML BAG IVPB ONE (15:25)
[2025-04-03] MEDS: PIPERACILLIN/TAZOB 4.5 GM 4.5 GM in DEXTROSE 5%-WATER 100 ML IVPB ONE (15:51)
[2025-04-03] MEDS ORDERED: VANCOMYCIN/WATER 1250 MG 1,250 MG/250 ML BAG IVPB SCH (16:00)
[2025-04-03] MEDS ORDERED: ZOLPIDEM TARTRATE 5 MG TABLET PO PRN (16:07)
[2025-04-03] MEDS: VANCOMYCIN PREMIX 1.75 GM 1,750 MG/350 ML PIGGYBACK IVPB ONE (16:38)
[2025-04-03] MEDS ORDERED: PIPERACILLIN/TAZOB 3.375 GM 3.375 GM in DEXTROSE 5%-WATER - 50 ML IVPB SCH (18:00)
[2025-04-03] MEDS: VANCOMYCIN/WATER 1250 MG 1,250 MG/250 ML BAG IVPB SCH ×3 (18:22→22:42)
[2025-04-03] MEDS: LACTATED RINGERS SOLUTION 1,000 ML/1,000 ML INFUS.BAG IV SCH (18:47)
[2025-04-03 18:54] LABS: EPI CELLS 8 /uL (0-25.1); HYALINE CASTS 0 /uL (0-3.1); URINE APPEARANCE CLEAR; URINE BACTERIA 14 /uL (0-1359); URINE BILIRUBIN NEGATIVE (NEGATIVE); URINE COLOR YELLOW; URINE GLUCOSE (UA) NEGATIVE (NEGATIVE); URINE KETONE NEGATIVE (NEGATIVE); URINE LEUK ESTERASE NEGATIVE (NEGATIVE); URINE NITRITE NEGATIVE (NEGATIVE); URINE PROTEIN 1+ (NEGATIVE); URINE RBC 6 /uL (0-23.9); URINE WBC 10 /uL (0-25.8)
[2025-04-03 19:19] LABS: LACTIC ACID 3.1 mmol/L (0.4-2.0)
[2025-04-03] MEDS: METHIMAZOLE 5 MG TABLET PO SCH (21:27)
[2025-04-03] MEDS: PIPERACILLIN/TAZOB 3.375 GM 3.375 GM in DEXTROSE 5%-WATER - 50 ML IVPB SCH ×2 (21:27→22:42)
[2025-04-03] MEDS ORDERED: METHIMAZOLE 5 MG TABLET PO SCH (22:00)
[2025-04-03] MEDS ORDERED: PATIENT'S OWN MEDICATION (NON-FORMULARY) (Zolpidem Tartrate [Ambien] 10 MG Tablet) PO SCH (22:00)
[2025-04-03] MEDS: ATORVASTATIN CA 20 MG TABLET (FP) PO SCH (22:42)
[2025-04-03] MEDS: BUDESONIDE/FORMETEROL FUMARATE 160/4.5 mcg INHALER IH SCH (22:42)
[2025-04-03] MEDS: APIXABAN 5 MG TABLET PO SCH (22:42)
[2025-04-04] MEDS: METHIMAZOLE 10 MG TABLET PO SCH (00:35)
[2025-04-04 04:53] VITALS: BMI 26.9
[2025-04-04 06:43] LABS: ABSOLUTE IMMATURE GRANULOCYTES 0.02 x10^3/uL (0.0-0.031); BASOPHILS # 0.04 x10^3/uL (0.01-0.08); EOSINOPHIL % 1.4 % (0.8-7.0); EOSINOPHILS # 0.12 x10^3/uL (0.04-0.54); HEMATOCRIT 42.4 % (40.1-51.0); HEMOGLOBIN 13.1 g/dL (13.7-17.5); MCHC 30.9 g/dl (32.3-36.5); MEAN CELL VOLUME 83.1 fl (79.0-92.2); MEAN PLT VOLUME 11.7 fl (9.4-12.4); MONOCYTE # 0.65 x10^3/uL (0.30-0.82); MONOCYTE % 7.3 % (5.3-12.2); PLATELET COUNT 201 x10^3/uL (163-337); RDW 17.1 % (12.2-16.4)
[2025-04-04] MEDS ORDERED: [UNRECOGNIZED DRUG - OTHER] PO SCH ×2 (07:00→10:00)
[2025-04-04] MEDS ORDERED: DEXTROAMPHETAMINE PO SCH ×2 (07:00→10:00)
[2025-04-04] MEDS ORDERED: AMPHETAMINE PO SCH ×2 (07:00→10:00)
[2025-04-04 07:05] LABS: POTASSIUM 4.3 mmol/L (3.5-5.1)
[2025-04-04 07:10] LABS: ALBUMIN 2.6 g/dl (3.4-5.0); BLOOD UREA NITROGEN 32.2 mg/dL (7-18); CALCIUM 8.5 mg/dL (8.5-10.1); MAGNESIUM 1.9 mg/dL (1.8-2.4)
[2025-04-04 07:13] LABS: CREATININE 1.2 mg/dL (0.55-1.3)
[2025-04-04 07:14] LABS: PHOSPHOROUS 2.8 mg/dL (2.5-4.9)
[2025-04-04 07:15] LABS: TOT PROT 6.4 g/dl (6.4-8.2)
[2025-04-04] MEDS: MULTIVITAMINS (DAILY MVI) TABLET (FP) PO SCH (09:34)
[2025-04-04] MEDS: TAMSULOSIN HCL 0.4 MG CAP PO SCH (09:35)
[2025-04-04] MEDS: ENOXAPARIN NA (PORCINE) 40 MG/0.4 ML DISP.SYRIN SQ SCH (09:37)
[2025-04-04] MEDS: hydrALAZINE HCL 25 MG TABLET (FP) PO SCH (09:46)
[2025-04-04] MEDS ORDERED: amLODIPine BESYLATE 5 MG TABLET (FP) PO SCH (10:00)
[2025-04-04] MEDS ORDERED: METHIMAZOLE 5 MG TABLET PO SCH (10:00)
[2025-04-04] MEDS: FUROSEMIDE 40 MG/4 ML INJECTABLE VIAL IVPUSH SCH (15:22)
[2025-04-04] MEDS: ALPRAZolam 1 MG TABLET PO PRN (20:20)
[2025-04-05 03:39] VITALS: BP 119/79; PULSE 80; RESP 20; TEMP 97.5
[2025-04-05 07:55] LABS: ABSOLUTE IMMATURE GRANULOCYTES 0.04 x10^3/uL (0.0-0.031); BASOPHILS # 0.06 x10^3/uL (0.01-0.08); EOSINOPHIL % 2.2 % (0.8-7.0); HEMATOCRIT 40.5 % (40.1-51.0); HEMOGLOBIN 12.6 g/dL (13.7-17.5); MCHC 31.1 g/dl (32.3-36.5); MEAN CELL VOLUME 83.3 fl (79.0-92.2); MEAN PLT VOLUME 11.5 fl (9.4-12.4); MONOCYTE # 0.61 x10^3/uL (0.30-0.82); MONOCYTE % 6.8 % (5.3-12.2); PLATELET COUNT 192 x10^3/uL (163-337); RDW 17.4 % (12.2-16.4)
[2025-04-05 08:09] LABS: POTASSIUM 4.1 mmol/L (3.5-5.1)
[2025-04-05 08:15] LABS: CALCIUM 8.9 mg/dL (8.5-10.1)
[2025-04-05 08:16] LABS: ALBUMIN 2.4 g/dl (3.4-5.0); BLOOD UREA NITROGEN 27.8 mg/dL (7-18); CREATININE 1.3 mg/dL (0.55-1.3)
[2025-04-05 08:18] LABS: BILIRUBIN,TOTAL 0.7 mg/dL (0.2-1); TOT PROT 6.2 g/dl (6.4-8.2)
== END 2025-04-05 09:53 | disposition left against medical advice (07) | DRG 603 ==
LOC: JER 11:59 → JERBED 14:53 → J4W 21:03
PROVIDERS: ADMIT Internal Medicine; ATTEND Internal Medicine
DX: L03.116 Cellulitis of left lower limb (principal); R18.8 Other ascites; I10 Essential (primary) hypertension; I25.10 Atherosclerotic heart disease of native coronary artery without angina pectoris; I25.2 Old myocardial infarction; J44.9 Chronic obstructive pulmonary disease, unspecified; I25.5 Ischemic cardiomyopathy; E87.6 Hypokalemia
CPT/HCPCS: 0241U-QW; 36415; 71045-TC-FY; 73590-TC-LT-FY; 73610-TC-LT-FY; 73630-TC-LT; 76775-TC; 80053; 81003; 82436; 82570; 82803; 83605; 83735; 84100; 84133; 84300; 84484; 85025; 85610; 85651; 85730; 86140; 86850; 86900; 86901; 87040; 93005; 93010; 93306-TC; 93971-TC; 99285-25; J3370